=== PATIENT | male | born 1960 | race Caucasian/White ===

== ENCOUNTER 2019-05-03 20:18 | Inpatient (IN) | payer MEDICARE, OTHER ==
--- NOTE | 2019-05-03 20:48 | ED Physician Chart ---
ED Chief Complaint/HPI - Patient Information Date Seen:: 05/03/19 Time Seen:: 20:15 Chief Complaint:: depression History of Present Illness:: Patient initially denied depression. Then he stated he wondered whether it was worth going on since all he does is eat and sleep. Historian:: Patient Review:: Nurse's Note Reviewed ED Review of Systems - Review of Systems General/Constitutional: No fever, No chills Skin: No skin lesions Head: No headache Eyes: No loss of vision ENT: Earache Neck: No neck pain Cardio Vascular: No chest pain, No palpitations Pulmonary: No SOB GI: No nausea, No vomiting, No diarrhea G/U: No dysuria Musculoskeletal: No bone or joint pain, No back pain, No muscle pain Psychiatric: Prior psych history, Depression Hematopoietic: No bruising ED Past Medical History - Past Medical History Past Medical History: HTN, DM, Other (anemia; status post DVT) Family History: Heart disease, Diabetes Melitus, HTN Social History: Non Smoker, No Alcohol Surgical History: other (probable TURP; right BK amputation; amputation left second toe) Psychiatricy History: Depression Medication: Reviewed Family Medical History - Family Member Mother History Unknown: Yes ED Physical Exam - Physical Examination General/Constitutional: Well-developed, well-nourished, Alert, No distress Other Gen/Cons comments:: Alert and oriented to the exact date Head: Atraumatic Eyes: Lids, conjuctiva normal, PERRL Skin: Nl inspection, No rash, No skin lesions, No ecchymosis ENMT: External ears, nose nl, Nasal exam nl Other ENMT comments:: four upper teeth present; all lower teeth absent Neck: No nuchal rigidity Respiratory: Nl effort/Exclusion, Clear to Auscultation Cardio Vascular: RRR, No murmur, gallop, rubs, NL S1 S2 GI: No tenderness/rebounding/guarding, No organomegaly, No hernia, Normal BS's Other Extremities comments:: Right BK amputation and amputation left second toe Neuro/Psych: No focal deficits Misc: No paraspinal tenderness ED Labs/Radiology/EKG Results - EKG Interpretations Rate & Rhythm: normal sinus rhythm with a rate of 70 [place]: normal axis Comments:: Normal EKG ED Septic Shock - . Is Septic Shock (SBP<90, OR Lactate>4 mmol\L) present?: No ED Reassessment (Disposition) - Reassessment Reassessment Condition:: Unchanged - Diagnosis Diagnosis:: Depression - Patient Disposition Admitted to:: [facility] Admitting Medical Physician:: Marco Albarado Admitting Psych Physician:: Ba Yarbrough Condition at Disposition:: Stable, Unchanged
[2019-05-03 21:15] LABS: % EOSINOPHILS 2.4 % (0.0-5.0); % LYMPHOCYTES 19.3 % (20.0-50.0); % MONOCYTES 7.1 % (2.0-10.0); % NEUTROPHILS 71.2 % (40.0-80.0); EOSINOPHILE ABSOLUTE 0.2 Th/cmm (0.1-0.4); HEMATOCRIT 48.1 % (41.0-60); HEMOGLOBIN 15.8 gm/dL (12-16); LYMPHOCYTE ABSOLUTE 1.7 Th/cmm (1.5-3.0); MEAN CELL VOLUME 79.4 fl (80-99); MEAN CORPUSCULAR HEMOGLOBIN 26.1 pg (26.0-30.0); MEAN CORPUSCULAR HGB CONC 32.8 pg (28.0-36.0); MONOCYTE ABSOLUTE 0.6 Th/cmm (0.3-1.0); NEUTROPHILE ABSOLUTE 6.4 Th/cmm (1.8-8.0); PLATELET COUNT 208 Th/cmm (150-400); RED BLOOD COUNT 6.06 Mil/cmm (4.30-5.70); RED CELL DISTRIBUTION WIDTH 16.8 % (11.5-20.0); WHITE BLOOD COUNT 8.9 Th/cmm (4.8-10.8)
[2019-05-03 21:32] LABS: ALB/GLOB RATIO 1.2 (1.0-1.8); ALBUMIN 3.9 gm/dL (4.2-5.5); ALKALINE PHOSPHATASE 64 U/L (34-104); ANION GAP 13.3 (7.0-16.0); BILIRUBIN,TOTAL 0.4 mg/dL (0.3-1.0); BUN - UREA NITROGEN 23 mg/dL (7-25); CALCIUM SERUM 9.1 mg/dL (8.6-10.3); CARBON DIOXIDE 22.4 mEq/L (21.0-31.0); CHLORIDE 104 mEq/L (98-107); CHOLESTEROL 175 mg/dL (<200); CREATININE - SERUM 1.1 mg/dL (0.7-1.3); GFR AFRICAN-AMERICAN > 60.0 ml/min (>90); GFR NON AFRICAN-AMERICAN > 60.0 ml/min; GLUCOSE 254 mg/dL (70-105); HDL -HIGH DENSITY LIPOPROTEIN 31 mg/dL (23-92); POTASSIUM SERUM 3.7 mEq/L (3.5-5.1); SGOT 17 U/L (13-39); SGPT/ALT 15 U/L (7-52); SODIUM SERUM 136 mEq/L (136-145); TOTAL PROTEIN,SERUM 7.3 gm/dL (6.0-8.3); TRIGLYCERIDES 464 mg/dL (<150)
[2019-05-03 23:37] VITALS: BP 111/74
[2019-05-04] MEDS ORDERED: Magnesium Hydroxide (MOM) 30 mL UDC PO PRN (00:22)
[2019-05-04 05:34] LABS: CHOLESTEROL 186 mg/dL (<200); HDL -HIGH DENSITY LIPOPROTEIN 33 mg/dL (23-92); TRIGLYCERIDES 493 mg/dL (<150)
[2019-05-04] MEDS: Ferrous Sulfate 325 MG TAB PO SCH ×2 (08:47→16:35)
[2019-05-04] MEDS: Pantoprazole 40 mg EC Tab PO SCH (08:47)
[2019-05-04] MEDS: Multivitamin w/ Minerals Tab PO SCH (08:48)
[2019-05-04 11:42] LABS: INR 1.26 (0.5-1.4)
--- NOTE | 2019-05-04 13:00 | History & Physical ---
ADMIT DATE: 05/04/2019 CHIEF COMPLAINT: Medical evaluation clearance on inpatient unit. HISTORY OF PRESENT ILLNESS: This is a 59-year-old male with history of hypertension, diabetes, status post ygsot-mlhml-bkkg amputation, history of deep venous thrombosis, on anticoagulation, admitted under service of Dr. Yarbrough. The patient denies chest pain, shortness of breath. PAST MEDICAL HISTORY: As mentioned in history of present illness. PAST SURGICAL HISTORY: Status post right below-knee amputation and a left knee surgery. ALLERGIES: PENICILLIN. MEDICATIONS: Colace, Aricept, Cymbalta, iron, gabapentin, glipizide, [place], lisinopril, milk of magnesia, Glucophage, Lopressor, multivitamin, omeprazole, Flomax, Coumadin. FAMILY HISTORY: Noncontributory. SOCIAL HISTORY: Nonsmoker, nondrinker, no intravenous drug use, . one time with one daughter. REVIEW OF SYSTEMS: GENERAL: The patient denies any constitutional symptoms. HEENT: No blurred vision or pain. LUNGS: No diagnosis of COPD or asthma. HEART: The patient with hypertension and diabetes. ABDOMEN: No nausea, vomiting, or pain. GENITOURINARY: The patient denies increased frequency or dysuria. NEUROLOGIC: No headache, seizure or syncope. PSYCHIATRIC: Stable. PHYSICAL EXAMINATION: VITAL SIGNS: Blood pressure 101/60, respirations 18, pulse 79, temperature 98.4. GENERAL: Elderly male, appears chronically ill. NECK: Supple. No mass. LUNGS: Equal breath sounds, otherwise clear to auscultation. HEART: Regular rate and rhythm without appreciable murmur. ABDOMEN: Soft, globular. EXTREMITIES: Positive right below-knee amputation. NEUROLOGIC: Limited. LABORATORY DATA: WBC 8, hemoglobin 15, platelets 208. INR 1.2. Sodium 133, potassium 3.7, BUN 23, creatinine 1.1, blood sugar 254, albumin 3.9. Triglycerides 183. ASSESSMENT AND PLAN: Hypertension, diabetes, low albumin, elevated triglycerides, benign prostatic hypertrophy, history of deep venous thrombosis, right below-knee amputation. Continue the patient on ADA diet and insulin sliding scale. Continue Coumadin per pharmacy. We will continue on a statin. Continue with current care. Follow consult and recommendations. JOB# [id number]
[2019-05-04] MEDS ORDERED: Non-Formulary Item 1 EA (Glipizide [Glipizide] 10 MG) PO SCH (17:00)
[2019-05-04] MEDS: Fenofibrate, Micronized 134 mg Cap PO SCH (17:10)
[2019-05-04] MEDS: Atorvastatin Calcium 10 MG TAB PO SCH (20:42)
[2019-05-04] MEDS ORDERED: Non-Formulary Item 1 EA (Atorvastatin Calcium [Lipitor] 20 MG) PO SCH (21:00)
--- NOTE | 2019-05-04 23:12 | Psychiatric Evaluation ---
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 States that it is 1998. He knows the month is May 04. The patient alluding to hopeless thoughts, despair, confused, mostly depressed, withdrawn, not really making much sense on exam, concerned about his mood symptoms, sent for worsening depression, isolation. PAST PSYCHIATRIC HISTORY: Denies. SOCIAL HISTORY: The patient states he was born in [place], not . He states he is . States he has a daughter aged 32. MEDICATIONS: Noted. MENTAL STATUS EXAMINATION: Stated age. Fair eye contact. Speech within normal limits. Mood depressed. Affect depressed. Thought processes were confused. No SI, no HI, unclear psychotic symptoms. Poor historian, not answering some questions. Poor insight. PROVISIONAL DIAGNOSES: Dementia, mood, unspecified. MEDICAL: Please see full H and P. ASSESSMENT: The patient is depressed, very confused, concerns about his ability to really function at a lower level. CONDITIONS FOR DISCHARGE: Improved mood, improved affect, better control of his mood symptoms. [facility]# [id number]
[2019-05-05] MEDS: Pantoprazole 40 mg EC Tab PO SCH (06:59)
[2019-05-05 08:06] LABS: A1C 6.7 % (4.8-5.6)
[2019-05-05] MEDS: Ferrous Sulfate 325 MG TAB PO SCH ×2 (09:01→16:47)
[2019-05-05] MEDS: Fenofibrate, Micronized 134 mg Cap PO SCH (09:01)
[2019-05-05] MEDS: Multivitamin w/ Minerals Tab PO SCH (09:02)
[2019-05-05 09:17] LABS: INR 1.16 (0.5-1.4)
--- NOTE | 2019-05-05 11:26 | Internal Medicine Prog Note ---
Internal Medicine Subjective - Subjective Service Date: 05/05/19 Patient seen and examined:: with staff Patient is:: awake, verbal Per staff patient has:: tolerating meds Internal Medicine Objective - Results Result Diagrams: 05/03/19 21:00 05/03/19 21:00 Recent Labs: Laboratory Last Values WBC 8.9 Th/cmm (4.8-10.8) 05/03/19 21:00 RBC 6.06 Mil/cmm (4.30-5.70) H 05/03/19 21:00 Hgb 15.8 gm/dL (12-16) 05/03/19 21:00 Hct 48.1 % (41.0-60) 05/03/19 21:00 MCV 79.4 fl (80-99) L 05/03/19 21:00 MCH 26.1 pg (26.0-30.0) 05/03/19 21:00 MCHC Differential 32.8 pg (28.0-36.0) 05/03/19 21:00 RDW 16.8 % (11.5-20.0) 05/03/19 21:00 Plt Count 208 Th/cmm (150-400) 05/03/19 21:00 MPV 7.4 fl 05/03/19 21:00 Neutrophils % 71.2 % (40.0-80.0) 05/03/19 21:00 Lymphocytes % 19.3 % (20.0-50.0) L 05/03/19 21:00 Monocytes % 7.1 % (2.0-10.0) 05/03/19 21:00 Eosinophils % 2.4 % (0.0-5.0) 05/03/19 21:00 Basophils % 0.0 % (0.0-2.0) 05/03/19 21:00 PT 12.0 SECONDS (9.5-11.5) H 05/05/19 09:00 INR 1.16 (0.5-1.4) 05/05/19 09:00 Sodium 136 mEq/L (136-145) 05/03/19 21:00 Potassium 3.7 mEq/L (3.5-5.1) 05/03/19 21:00 Chloride 104 mEq/L (98-107) 05/03/19 21:00 Carbon Dioxide 22.4 mEq/L (21.0-31.0) 05/03/19 21:00 Anion Gap 13.3 (7.0-16.0) 05/03/19 21:00 BUN 23 mg/dL (7-25) 05/03/19 21:00 Creatinine 1.1 mg/dL (0.7-1.3) 05/03/19 21:00 Est GFR ( Amer) > 60.0 ml/min (>90) 05/03/19 21:00 Est GFR (Non-Af Amer) > 60.0 ml/min 05/03/19 21:00 BUN/Creatinine Ratio 20.9 05/03/19 21:00 Glucose 254 mg/dL (70-105) H 05/03/19 21:00 POC Glucose 146 MG/DL (70 - 105) H 05/05/19 06:08 Calcium 9.1 mg/dL (8.6-10.3) 05/03/19 21:00 Total Bilirubin 0.4 mg/dL (0.3-1.0) 05/03/19 21:00 AST 17 U/L (13-39) 05/03/19 21:00 ALT 15 U/L (7-52) 05/03/19 21:00 Alkaline Phosphatase 64 U/L (34-104) 05/03/19 21:00 Total Protein 7.3 gm/dL (6.0-8.3) 05/03/19 21:00 Albumin 3.9 gm/dL (4.2-5.5) L 05/03/19 21:00 Globulin 3.4 gm/dL 05/03/19 21:00 Albumin/Globulin Ratio 1.2 (1.0-1.8) 05/03/19 21:00 Triglycerides 493 mg/dL (<150) H 05/04/19 21:00 Cholesterol 186 mg/dL (<200) 05/04/19 21:00 LDL Cholesterol Direct 112 mg/dL (75-193) 05/04/19 21:00 HDL Cholesterol 33 mg/dL (23-92) 05/04/19 21:00 TSH 2.63 uIU/ml (0.34-5.60) 05/03/19 21:00 - Physical Exam Vitals and I&O: Vital Signs Temp 97.9 F 05/05/19 04:27 Pulse 83 05/05/19 09:02 Resp 18 05/05/19 04:27 BP 134/97 05/05/19 09:02 Pulse Ox 98 05/05/19 04:27 Intake & Output 05/04/19 05/05/19 05/05/19 18:59 06:59 18:59 Intake Total 1350 480 Balance 1350 480 Intake: Oral 1350 480 Other: # Voids 2 Active Medications: Current Medications Acetaminophen/Hydrocodone Bitart ([place] 5mg/325mg) 1 tab PO BID PRN PRN Reason: Pain (Moderate) Stop: 07/03/19 00:21 Atorvastatin Calcium (Lipitor) 20 mg PO HS [facility]; Protocol Stop: 07/03/19 20:59 Last Admin: 05/04/19 20:42 Dose: 20 mg Docusate Sodium (Colace) 100 mg PO BID [facility] Stop: 07/03/19 08:59 Last Admin: 05/05/19 09:01 Dose: 100 mg Donepezil HCl (Aricept) 10 mg PO HS [facility] Stop: 07/03/19 20:59 Last Admin: 05/04/19 20:43 Dose: 10 mg Duloxetine HCl (Cymbalta) 30 mg PO DAILY [facility]; Protocol Stop: 07/03/19 08:59 Last Admin: 05/05/19 09:01 Dose: 30 mg Fenofibrate (Tricor) 134 mg PO DAILY [facility] Stop: 07/03/19 16:59 Last Admin: 05/05/19 09:01 Dose: 134 mg Ferrous Sulfate (Iron) 325 mg PO BID [facility] Stop: 07/03/19 08:59 Last Admin: 05/05/19 09:01 Dose: 325 mg Gabapentin (Neurontin) 300 mg PO TID [facility] Stop: 07/03/19 08:59 Last Admin: 05/05/19 09:01 Dose: 300 mg Glipizide (Glucotrol) 10 mg PO QDAC [facility] Stop: 07/03/19 08:59 Last Admin: 05/05/19 06:52 Dose: 10 mg Lisinopril (Zestril) 10 mg PO DAILY [facility] Stop: 07/03/19 08:59 Last Admin: 05/05/19 09:01 Dose: 10 mg Lorazepam (Ativan) 0.5 mg PO Q4H PRN; Protocol PRN Reason: Anxiety Stop: 07/03/19 00:29 Magnesium Hydroxide (Milk Of Magnesia) 30 ml PO DAILY PRN PRN Reason: GI DISTRESS Stop: 07/03/19 00:21 Metformin HCl (Glucophage) 1,000 mg PO BID [facility] Stop: 07/03/19 08:59 Last Admin: 05/05/19 09:02 Dose: 1,000 mg Metoprolol Tartrate (Lopressor) 25 mg PO BID [facility] Stop: 07/03/19 08:59 Last Admin: 05/05/19 09:02 Dose: 25 mg Pantoprazole Sodium (Protonix) 40 mg PO QDAC [facility] Stop: 07/03/19 08:59 Last Admin: 05/05/19 06:59 Dose: 40 mg Tamsulosin HCl (Flomax) 0.4 mg PO HS [facility] Stop: 07/03/19 20:59 Last Admin: 05/04/19 20:43 Dose: 0.4 mg Warfarin Sodium (Coumadin Per Pharmacy) 1 ea MC PRN PRN PRN Reason: COUMADIN PER RX Stop: 07/03/19 07:56 Warfarin Sodium (Coumadin) 7.5 mg PO 1300 ONE Stop: 05/05/19 13:01 Zolpidem Tartrate (Ambien) 5 mg PO HS PRN PRN Reason: Insomnia Stop: 07/03/19 00:29 Last Admin: 05/04/19 20:43 Dose: 5 mg General: alert HEENT: NC/AT, PERRLA Neck: Supple Lungs: CTAB Cardiovascular: RRR, Normal S1, Normal S2, without murmur Abdomen: soft, non-tender, non-distended, positive bowel sound Extremities: excoriation Neurological: alert Internal Medicine Assmt/Plan - Assessment Assessment: HTN DM2 LOW ALBUMIN ELEVATED TRIGLYCERIDES BPH HX DVT RBKA - Plan Plan: SLIDING SCALE FALL PRECAUTIONS MONITOR BP CONTINUE CURRENT PLAN OF CARE Nutritional Asmnt/Malnutr-PDOC - Dietary Evaluation Malnutrition Findings (Please click <Entered> for more info): Nutritional Asmnt/Malnutrition Start: 05/04/19 14: 23 Text: Status: Complete Freq: Protocol: Document 05/04/19 14:23 JENIFER (Rec: 05/04/19 14:37 JENIFER [facility]) Nutritional Asmnt/Malnutrition Patient General Information Nutritional Screening Moderate Risk Consult Diagnosis Depression Pertinent Medical Hx/Surgical Hx HTN, DM, Anemia, Status post DVT Subjective Information IA/Consult: New admit Pt is a 53-year-old male admitted on 05/03 c/o depression. Per RN, Pt ate 100 % breakfast and 25-50% lunch today. May want to consider CCHO diet d/t hx of DM and elevated blood glucose 254 noted at admission. RN understood and will talk to MD . HT: 6 WT: 175 LB (79.55 kg) BMI: 23.73 (Normal) GI: WNL, Soft, Non-Tender BM: Not Noted I/O: Not Noted Skin: WNL, Intact Jorge: 16 Diet Order: Cardiac, NCS, ANGIE Estimated Energy Needs: ( Geriatric, CBW) 5991-7126 kcals (25-30 kcals/ kg) 80-95g Pro (1.0-1.2 g/kg) 4655-5933 ml (25-30 ml/kg) Current Diet Order/ Nutrition Support Cardiac, NCS, ANGIE Pertinent Medications Lipitor, Colace, Ferrous Sulfate, MOM (PRN), Glucophage , Lopressor, Protonix Pertinent Labs 05/03: Glucose 254, Alb 3.9 Nutritional Hx/Data Height 6 ft Height (Calculated Centimeters) 182.9 Current Weight (lbs) 175 lb Weight (Calculated Kilograms) 79.4 Weight (Calculated Grams) 96604.7 [place] Body Weight 77.6 kg % [place] Body Weight 103 Body Mass Index (BMI) 23.7 Weight Status Approriate GI Symptoms GI Symptoms None Last BM Not Noted Skin Integrity/Comment: WNL, Intact Jorge: 16 Current %PO Fair (50-74%) Estimated Nutritional Goals BEE in Kcals: Using Current wt Calories/Kcals/Kg 25-30 Kcals Calculated 5970-5370 Protein: Using Current wt Protein g/k.0-1.2 Protein Calculated 80-95 Fluid: ml 8311-9961 ml (25-30 ml/kg) Nutritional Problem 1. Problem Problem Altered nutrition related labs Etiology r/t Endocrine dysfunction and HX DM Signs/Symptoms: aeb 05/03: Glucose 254 Malnutrition Related to Morbid Obesity Malnutrition related to morbid obesity No Intervention/Recommendation Comments 1.Continue with Cardiac, NCS, ANGIE diet as ordered. 2.Recommend CCHO diet d/t hx of DM and elevated blood glucose 254 noted at admission . 3.Continue anti-hyperglycemic medications for glucose control per MD order. Expected Outcomes/Goals Expected Outcomes/Goals 1.PO intake to meet 75% of nutritional needs. 2.Monitor PO intake, wt, skin integrity, and nutrition related labs to trend WNL. 3.F/U as moderate risk in 3-5 days, 05/07-05/09
--- NOTE | 2019-05-05 18:09 | Progress Notes ---
DATE: 05/05/2019 SUBJECTIVE: A 59-year-old male stating he is here for "a [employer] checkup" poor historian, does not really know what is going on, seemingly confused, mostly withdrawn. Per staff, he has history of being sexually inappropriate. Poor orientation. Noted depressed, withdrawn, mostly keeps to self, some forgetfulness noted. Fair sleep, fair appetite, coming [facility]. Medications were reviewed. Ongoing behavioral disturbances, depression noted. PLAN: We will continue to monitor. [facility]# [id number]
[2019-05-05] MEDS: Atorvastatin Calcium 10 MG TAB PO SCH (21:16)
[2019-05-06] MEDS: Pantoprazole 40 mg EC Tab PO SCH (06:57)
[2019-05-06] MEDS: Ferrous Sulfate 325 MG TAB PO SCH ×2 (08:58→17:27)
[2019-05-06] MEDS: Multivitamin w/ Minerals Tab PO SCH (08:58)
[2019-05-06] MEDS: Fenofibrate, Micronized 134 mg Cap PO SCH (08:58)
[2019-05-06 09:12] LABS: INR 1.3 (0.5-1.4)
--- NOTE | 2019-05-06 11:35 | Internal Medicine Prog Note ---
Internal Medicine Subjective - Subjective Service Date: 05/06/19 Patient is:: awake, verbal Per staff patient has:: tolerating meds Internal Medicine Objective - Results Result Diagrams: 05/03/19 21:00 05/03/19 21:00 Recent Labs: Laboratory Last Values WBC 8.9 Th/cmm (4.8-10.8) 05/03/19 21:00 RBC 6.06 Mil/cmm (4.30-5.70) H 05/03/19 21:00 Hgb 15.8 gm/dL (12-16) 05/03/19 21:00 Hct 48.1 % (41.0-60) 05/03/19 21:00 MCV 79.4 fl (80-99) L 05/03/19 21:00 MCH 26.1 pg (26.0-30.0) 05/03/19 21:00 MCHC Differential 32.8 pg (28.0-36.0) 05/03/19 21:00 RDW 16.8 % (11.5-20.0) 05/03/19 21:00 Plt Count 208 Th/cmm (150-400) 05/03/19 21:00 MPV 7.4 fl 05/03/19 21:00 Neutrophils % 71.2 % (40.0-80.0) 05/03/19 21:00 Lymphocytes % 19.3 % (20.0-50.0) L 05/03/19 21:00 Monocytes % 7.1 % (2.0-10.0) 05/03/19 21:00 Eosinophils % 2.4 % (0.0-5.0) 05/03/19 21:00 Basophils % 0.0 % (0.0-2.0) 05/03/19 21:00 PT 13.3 SECONDS (9.5-11.5) H 05/06/19 08:56 INR 1.30 (0.5-1.4) 05/06/19 08:56 Sodium 136 mEq/L (136-145) 05/03/19 21:00 Potassium 3.7 mEq/L (3.5-5.1) 05/03/19 21:00 Chloride 104 mEq/L (98-107) 05/03/19 21:00 Carbon Dioxide 22.4 mEq/L (21.0-31.0) 05/03/19 21:00 Anion Gap 13.3 (7.0-16.0) 05/03/19 21:00 BUN 23 mg/dL (7-25) 05/03/19 21:00 Creatinine 1.1 mg/dL (0.7-1.3) 05/03/19 21:00 Est GFR ( Amer) > 60.0 ml/min (>90) 05/03/19 21:00 Est GFR (Non-Af Amer) > 60.0 ml/min 05/03/19 21:00 BUN/Creatinine Ratio 20.9 05/03/19 21:00 Glucose 254 mg/dL (70-105) H 05/03/19 21:00 POC Glucose 129 MG/DL (70 - 105) H 05/06/19 05:25 Calcium 9.1 mg/dL (8.6-10.3) 05/03/19 21:00 Total Bilirubin 0.4 mg/dL (0.3-1.0) 05/03/19 21:00 AST 17 U/L (13-39) 05/03/19 21:00 ALT 15 U/L (7-52) 05/03/19 21:00 Alkaline Phosphatase 64 U/L (34-104) 05/03/19 21:00 Total Protein 7.3 gm/dL (6.0-8.3) 05/03/19 21:00 Albumin 3.9 gm/dL (4.2-5.5) L 05/03/19 21:00 Globulin 3.4 gm/dL 05/03/19 21:00 Albumin/Globulin Ratio 1.2 (1.0-1.8) 05/03/19 21:00 Triglycerides 493 mg/dL (<150) H 05/04/19 21:00 Cholesterol 186 mg/dL (<200) 05/04/19 21:00 LDL Cholesterol Direct 112 mg/dL (75-193) 05/04/19 21:00 HDL Cholesterol 33 mg/dL (23-92) 05/04/19 21:00 TSH 2.63 uIU/ml (0.34-5.60) 05/03/19 21:00 - Physical Exam Vitals and I&O: Vital Signs Temp 97.9 F 05/06/19 05:35 Pulse 75 05/06/19 05:35 Resp 18 05/06/19 05:35 BP 106/55 05/06/19 05:35 Pulse Ox 96 05/06/19 05:35 Intake & Output 05/05/19 05/06/19 05/06/19 18:59 06:59 18:59 Intake Total 1200 Balance 1200 Intake: Oral 1200 Other: # Voids 4 # Bowel Movements 1 Active Medications: Current Medications Acetaminophen/Hydrocodone Bitart ([place] 5mg/325mg) 1 tab PO BID PRN PRN Reason: Pain (Moderate) Stop: 07/03/19 00:21 Atorvastatin Calcium (Lipitor) 20 mg PO HS [facility]; Protocol Stop: 07/03/19 20:59 Last Admin: 05/05/19 21:16 Dose: 20 mg Docusate Sodium (Colace) 100 mg PO BID [facility] Stop: 07/03/19 08:59 Last Admin: 05/06/19 08:57 Dose: 100 mg Donepezil HCl (Aricept) 10 mg PO HS [facility] Stop: 07/03/19 20:59 Last Admin: 05/05/19 21:16 Dose: 10 mg Duloxetine HCl (Cymbalta) 30 mg PO DAILY [facility]; Protocol Stop: 07/03/19 08:59 Last Admin: 05/06/19 08:57 Dose: 30 mg Fenofibrate (Tricor) 134 mg PO DAILY [facility] Stop: 07/03/19 16:59 Last Admin: 05/06/19 08:58 Dose: 134 mg Ferrous Sulfate (Iron) 325 mg PO BID [facility] Stop: 07/03/19 08:59 Last Admin: 05/06/19 08:58 Dose: 325 mg Gabapentin (Neurontin) 300 mg PO TID [facility] Stop: 07/03/19 08:59 Last Admin: 05/06/19 08:58 Dose: 300 mg Glipizide (Glucotrol) 10 mg PO QDAC [facility] Stop: 07/03/19 08:59 Last Admin: 05/06/19 06:57 Dose: 10 mg Lisinopril (Zestril) 10 mg PO DAILY [facility] Stop: 07/03/19 08:59 Last Admin: 05/06/19 08:58 Dose: Not Given Lorazepam (Ativan) 0.5 mg PO Q4H PRN; Protocol PRN Reason: Anxiety Stop: 07/03/19 00:29 Magnesium Hydroxide (Milk Of Magnesia) 30 ml PO DAILY PRN PRN Reason: GI DISTRESS Stop: 07/03/19 00:21 Metformin HCl (Glucophage) 1,000 mg PO BID [facility] Stop: 07/03/19 08:59 Last Admin: 05/06/19 08:58 Dose: 1,000 mg Metoprolol Tartrate (Lopressor) 25 mg PO BID [facility] Stop: 07/03/19 08:59 Last Admin: 05/06/19 08:58 Dose: Not Given Pantoprazole Sodium (Protonix) 40 mg PO QDAC [facility] Stop: 07/03/19 08:59 Last Admin: 05/06/19 06:57 Dose: 40 mg Tamsulosin HCl (Flomax) 0.4 mg PO HS [facility] Stop: 07/03/19 20:59 Last Admin: 05/05/19 21:16 Dose: 0.4 mg Warfarin Sodium (Coumadin Per Pharmacy) 1 ea MC PRN PRN PRN Reason: COUMADIN PER RX Stop: 07/03/19 07:56 Warfarin Sodium (Coumadin) 5 mg PO 1300 ONE Stop: 05/06/19 13:01 Zolpidem Tartrate (Ambien) 5 mg PO HS PRN PRN Reason: Insomnia Stop: 07/03/19 00:29 Last Admin: 05/04/19 20:43 Dose: 5 mg General: alert HEENT: NC/AT, PERRLA Neck: Supple Lungs: CTAB Cardiovascular: RRR, Normal S1, Normal S2, without murmur Abdomen: soft, non-tender, non-distended, positive bowel sound Extremities: excoriation Neurological: alert Internal Medicine Assmt/Plan - Assessment Assessment: HTN DM2 LOW ALBUMIN ELEVATED TRIGLYCERIDES BPH HX DVT RBKA - Plan Plan: SLIDING SCALE FALL PRECAUTIONS MONITOR BP CONTINUE CURRENT PLAN OF CARE Nutritional Asmnt/Malnutr-PDOC - Dietary Evaluation Malnutrition Findings (Please click <Entered> for more info): Nutritional Asmnt/Malnutrition Start: 05/04/19 14: 23 Text: Status: Complete Freq: Protocol: Document 05/04/19 14:23 JENIFER (Rec: 05/04/19 14:37 JENIFER [facility]) Nutritional Asmnt/Malnutrition Patient General Information Nutritional Screening Moderate Risk Consult Diagnosis Depression Pertinent Medical Hx/Surgical Hx HTN, DM, Anemia, Status post DVT Subjective Information IA/Consult: New admit Pt is a 53-year-old male admitted on 05/03 c/o depression. Per RN, Pt ate 100 % breakfast and 25-50% lunch today. May want to consider CCHO diet d/t hx of DM and elevated blood glucose 254 noted at admission. RN understood and will talk to MD . HT: 6 WT: 175 LB (79.55 kg) BMI: 23.73 (Normal) GI: WNL, Soft, Non-Tender BM: Not Noted I/O: Not Noted Skin: WNL, Intact Jorge: 16 Diet Order: Cardiac, NCS, ANGIE Estimated Energy Needs: ( Geriatric, CBW) 2716-1370 kcals (25-30 kcals/ kg) 80-95g Pro (1.0-1.2 g/kg) 8522-3159 ml (25-30 ml/kg) Current Diet Order/ Nutrition Support Cardiac, NCS, AGNIE Pertinent Medications Lipitor, Colace, Ferrous Sulfate, MOM (PRN), Glucophage , Lopressor, Protonix Pertinent Labs 05/03: Glucose 254, Alb 3.9 Nutritional Hx/Data Height 6 ft Height (Calculated Centimeters) 182.9 Current Weight (lbs) 175 lb Weight (Calculated Kilograms) 79.4 Weight (Calculated Grams) 45377.7 [place] Body Weight 77.6 kg % [place] Body Weight 103 Body Mass Index (BMI) 23.7 Weight Status Approriate GI Symptoms GI Symptoms None Last BM Not Noted Skin Integrity/Comment: WNL, Intact Jorge: 16 Current %PO Fair (50-74%) Estimated Nutritional Goals BEE in Kcals: Using Current wt Calories/Kcals/Kg 25-30 Kcals Calculated 6094-6953 Protein: Using Current wt Protein g/k.0-1.2 Protein Calculated 80-95 Fluid: ml 1590-8816 ml (25-30 ml/kg) Nutritional Problem 1. Problem Problem Altered nutrition related labs Etiology r/t Endocrine dysfunction and HX DM Signs/Symptoms: aeb 05/03: Glucose 254 Malnutrition Related to Morbid Obesity Malnutrition related to morbid obesity No Intervention/Recommendation Comments 1.Continue with Cardiac, NCS, ANGIE diet as ordered. 2.Recommend CCHO diet d/t hx of DM and elevated blood glucose 254 noted at admission . 3.Continue anti-hyperglycemic medications for glucose control per MD order. Expected Outcomes/Goals Expected Outcomes/Goals 1.PO intake to meet 75% of nutritional needs. 2.Monitor PO intake, wt, skin integrity, and nutrition related labs to trend WNL. 3.F/U as moderate risk in 3-5 days, 05/07-05/09
[2019-05-06] MEDS: Hydrocodone/APAP 5mg/325mg Tab PO PRN (20:46)
[2019-05-06] MEDS: Atorvastatin Calcium 10 MG TAB PO SCH (20:47)
--- NOTE | 2019-05-07 00:23 | Progress Notes ---
DATE: 05/06/2019 SUBJECTIVE: The patient is currently in the hospital, slept about 6-7 hours, staff monitoring for depression and sexually inappropriate behaviors. The patient has been generally calm, mostly keeps to self, confused, does not know why he is here. He gave some answers as to why he is here, but they are all wrong, not wanting to talk to me today. He is sleeping, arousable, but does not want to talk to me and tells me to go away. Medications were noted. Staff keeping a close eye on any behavioral disturbances. PLAN: We will continue to monitor. Medications were also reviewed. JOB# [id number]
[2019-05-07] MEDS: Pantoprazole 40 mg EC Tab PO SCH (07:02)
[2019-05-07] MEDS: Fenofibrate, Micronized 134 mg Cap PO SCH (09:14)
[2019-05-07] MEDS: Ferrous Sulfate 325 MG TAB PO SCH ×3 (09:14→18:27)
[2019-05-07] MEDS: Multivitamin w/ Minerals Tab PO SCH (09:14)
[2019-05-07 11:20] LABS: INR 1.4 (0.5-1.4)
--- NOTE | 2019-05-07 15:21 | Internal Medicine Prog Note ---
Internal Medicine Subjective - Subjective Patient seen and examined:: with staff, chart reviewed Patient is:: awake, verbal, interactive Per staff patient has:: no adverse event, no episodes of fall, poor oral intake , tolerating meds Internal Medicine Objective - Results Result Diagrams: 05/03/19 21:00 05/03/19 21:00 Recent Labs: Laboratory Last Values WBC 8.9 Th/cmm (4.8-10.8) 05/03/19 21:00 RBC 6.06 Mil/cmm (4.30-5.70) H 05/03/19 21:00 Hgb 15.8 gm/dL (12-16) 05/03/19 21:00 Hct 48.1 % (41.0-60) 05/03/19 21:00 MCV 79.4 fl (80-99) L 05/03/19 21:00 MCH 26.1 pg (26.0-30.0) 05/03/19 21:00 MCHC Differential 32.8 pg (28.0-36.0) 05/03/19 21:00 RDW 16.8 % (11.5-20.0) 05/03/19 21:00 Plt Count 208 Th/cmm (150-400) 05/03/19 21:00 MPV 7.4 fl 05/03/19 21:00 Neutrophils % 71.2 % (40.0-80.0) 05/03/19 21:00 Lymphocytes % 19.3 % (20.0-50.0) L 05/03/19 21:00 Monocytes % 7.1 % (2.0-10.0) 05/03/19 21:00 Eosinophils % 2.4 % (0.0-5.0) 05/03/19 21:00 Basophils % 0.0 % (0.0-2.0) 05/03/19 21:00 PT 14.4 SECONDS (9.5-11.5) H 05/07/19 11:00 INR 1.40 (0.5-1.4) 05/07/19 11:00 Sodium 136 mEq/L (136-145) 05/03/19 21:00 Potassium 3.7 mEq/L (3.5-5.1) 05/03/19 21:00 Chloride 104 mEq/L (98-107) 08/29/19 21:00 Carbon Dioxide 22.4 mEq/L (21.0-31.0) 05/03/19 21:00 Anion Gap 13.3 (7.0-16.0) 05/03/19 21:00 BUN 23 mg/dL (7-25) 05/03/19 21:00 Creatinine 1.1 mg/dL (0.7-1.3) 05/03/19 21:00 Est GFR ( Amer) > 60.0 ml/min (>90) 05/03/19 21:00 Est GFR (Non-Af Amer) > 60.0 ml/min 05/03/19 21:00 BUN/Creatinine Ratio 20.9 05/03/19 21:00 Glucose 254 mg/dL (70-105) H 05/03/19 21:00 POC Glucose 153 MG/DL (70 - 105) H 05/07/19 14:18 Calcium 9.1 mg/dL (8.6-10.3) 05/03/19 21:00 Total Bilirubin 0.4 mg/dL (0.3-1.0) 05/03/19 21:00 AST 17 U/L (13-39) 05/03/19 21:00 ALT 15 U/L (7-52) 05/03/19 21:00 Alkaline Phosphatase 64 U/L (34-104) 05/03/19 21:00 Total Protein 7.3 gm/dL (6.0-8.3) 05/03/19 21:00 Albumin 3.9 gm/dL (4.2-5.5) L 05/03/19 21:00 Globulin 3.4 gm/dL 05/03/19 21:00 Albumin/Globulin Ratio 1.2 (1.0-1.8) 05/03/19 21:00 Triglycerides 493 mg/dL (<150) H 05/04/19 21:00 Cholesterol 186 mg/dL (<200) 05/04/19 21:00 LDL Cholesterol Direct 112 mg/dL (75-193) 05/04/19 21:00 HDL Cholesterol 33 mg/dL (23-92) 05/04/19 21:00 TSH 2.63 uIU/ml (0.34-5.60) 05/03/19 21:00 RPR NONREACTIVE (NONREACTIVE) 05/03/19 21:00 - Physical Exam Vitals and I&O: Vital Signs Temp 98.1 F 05/07/19 14:27 Pulse 74 05/07/19 14:27 Resp 18 05/07/19 14:27 BP 104/68 05/07/19 14:27 Pulse Ox 94 05/07/19 14:27 Active Medications: Current Medications Acetaminophen/Hydrocodone Bitart ([place] 5mg/325mg) 1 tab PO BID PRN PRN Reason: Pain (Moderate) Stop: 07/03/19 00:21 Last Admin: 05/06/19 20:46 Dose: 1 tab Atorvastatin Calcium (Lipitor) 20 mg PO HS [facility]; Protocol Stop: 07/03/19 20:59 Last Admin: 05/06/19 20:47 Dose: 20 mg Docusate Sodium (Colace) 100 mg PO BID [facility] Stop: 07/03/19 08:59 Last Admin: 05/07/19 14:06 Dose: Not Given Donepezil HCl (Aricept) 10 mg PO HS [facility] Stop: 07/03/19 20:59 Last Admin: 05/06/19 20:46 Dose: 10 mg Duloxetine HCl (Cymbalta) 30 mg PO DAILY [facility]; Protocol Stop: 07/03/19 08:59 Last Admin: 05/07/19 09:14 Dose: 30 mg Fenofibrate (Tricor) 134 mg PO DAILY [facility] Stop: 07/03/19 16:59 Last Admin: 05/07/19 09:14 Dose: 134 mg Ferrous Sulfate (Iron) 325 mg PO BID [facility] Stop: 07/03/19 08:59 Last Admin: 05/07/19 14:06 Dose: Not Given Gabapentin (Neurontin) 300 mg PO TID [facility] Stop: 07/03/19 08:59 Last Admin: 05/07/19 14:06 Dose: Not Given Glipizide (Glucotrol) 10 mg PO QDAC [facility] Stop: 07/03/19 08:59 Last Admin: 05/07/19 07:02 Dose: 10 mg Lisinopril (Zestril) 10 mg PO DAILY [facility] Stop: 07/03/19 08:59 Last Admin: 05/07/19 09:14 Dose: Not Given Lorazepam (Ativan) 0.5 mg PO Q4H PRN; Protocol PRN Reason: Anxiety Stop: 07/03/19 00:29 Magnesium Hydroxide (Milk Of Magnesia) 30 ml PO DAILY PRN PRN Reason: GI DISTRESS Stop: 07/03/19 00:21 Metformin HCl (Glucophage) 1,000 mg PO BID [facility] Stop: 07/03/19 08:59 Last Admin: 05/07/19 14:06 Dose: Not Given Metoprolol Tartrate (Lopressor) 25 mg PO BID [facility] Stop: 07/03/19 08:59 Last Admin: 05/07/19 09:14 Dose: Not Given Pantoprazole Sodium (Protonix) 40 mg PO QDAC [facility] Stop: 07/03/19 08:59 Last Admin: 05/07/19 07:02 Dose: 40 mg Tamsulosin HCl (Flomax) 0.4 mg PO HS [facility] Stop: 07/03/19 20:59 Last Admin: 05/06/19 20:47 Dose: 0.4 mg Warfarin Sodium (Coumadin Per Pharmacy) 1 ea [facility] PRN PRN PRN Reason: COUMADIN PER RX Stop: 07/03/19 07:56 Zolpidem Tartrate (Ambien) 5 mg PO HS PRN PRN Reason: Insomnia Stop: 07/03/19 00:29 Last Admin: 05/06/19 21:27 Dose: 5 mg General: alert HEENT: NC/AT, PERRLA Neck: Supple Lungs: CTAB Cardiovascular: RRR, Normal S1, Normal S2, without murmur Abdomen: soft, non-tender, non-distended, positive bowel sound Extremities: excoriation Neurological: alert Internal Medicine Assmt/Plan - Assessment Assessment: - Assessment Assessment: HTN DM2 LOW ALBUMIN ELEVATED TRIGLYCERIDES BPH HX DVT RBKA - Plan Plan: - Plan Plan: SLIDING SCALE FALL PRECAUTIONS MONITOR BP CONTINUE CURRENT PLAN OF CARE nutritional support will titrate meds any rn Nutritional Asmnt/Malnutr-PDOC - Dietary Evaluation Malnutrition Findings (Please click <Entered> for more info): Nutritional Asmnt/Malnutrition Start: 05/04/19 14: 23 Text: Status: Complete Freq: Protocol: Document 05/04/19 14:23 JENIFER (Rec: 05/04/19 14:37 JENIFER [email or web address]) Nutritional Asmnt/Malnutrition Patient General Information Nutritional Screening Moderate Risk Consult Diagnosis Depression Pertinent Medical Hx/Surgical Hx HTN, DM, Anemia, Status post DVT Subjective Information IA/Consult: New admit Pt is a 53-year-old male admitted on 05/03 c/o depression. Per RN, Pt ate 100 % breakfast and 25-50% lunch today. May want to consider CCHO diet d/t hx of DM and elevated blood glucose 254 noted at admission. RN understood and will talk to MD . HT: 6 WT: 175 LB (79.55 kg) BMI: 23.73 (Normal) GI: WNL, Soft, Non-Tender BM: Not Noted I/O: Not Noted Skin: WNL, Intact Jorge: 16 Diet Order: Cardiac, NCS, ANGIE Estimated Energy Needs: ( Geriatric, CBW) 9102-8657 kcals (25-30 kcals/ kg) 80-95g Pro (1.0-1.2 g/kg) 6876-7707 ml (25-30 ml/kg) Current Diet Order/ Nutrition Support Cardiac, NCS, ANGIE Pertinent Medications Lipitor, Colace, Ferrous Sulfate, MOM (PRN), Glucophage , Lopressor, Protonix Pertinent Labs 05/03: Glucose 254, Alb 3.9 Nutritional Hx/Data Height 1.83 m Height (Calculated Centimeters) 182.9 Current Weight (lbs) 79.379 kg Weight (Calculated Kilograms) 79.4 Weight (Calculated Grams) 92694.7 [place] Body Weight 77.6 kg % [place] Body Weight 103 Body Mass Index (BMI) 23.7 Weight Status Approriate GI Symptoms GI Symptoms None Last BM Not Noted Skin Integrity/Comment: WNL, Intact Jorge: 16 Current %PO Fair (50-74%) Estimated Nutritional Goals BEE in Kcals: Using Current wt Calories/Kcals/Kg 25-30 Kcals Calculated 8302-4930 Protein: Using Current wt Protein g/k.0-1.2 Protein Calculated 80-95 Fluid: ml 5424-3083 ml (25-30 ml/kg) Nutritional Problem 1. Problem Problem Altered nutrition related labs Etiology r/t Endocrine dysfunction and HX DM Signs/Symptoms: aeb 05/03: Glucose 254 Malnutrition Related to Morbid Obesity Malnutrition related to morbid obesity No Intervention/Recommendation Comments 1.Continue with Cardiac, NCS, ANGIE diet as ordered. 2.Recommend CCHO diet d/t hx of DM and elevated blood glucose 254 noted at admission . 3.Continue anti-hyperglycemic medications for glucose control per MD order. Expected Outcomes/Goals Expected Outcomes/Goals 1.PO intake to meet 75% of nutritional needs. 2.Monitor PO intake, wt, skin integrity, and nutrition related labs to trend WNL. 3.F/U as moderate risk in 3-5 days, 05/07-05/09
--- NOTE | 2019-05-07 16:13 | Progress Notes ---
DATE: 05/07/2019 SUBJECTIVE: The patient seems to be showing some signs of improvement, still sometimes withdrawn, depressed appearing. Concerns for sexual inappropriate behaviors, but the patient seems to be doing somewhat better. The patient has no agitation, no escalation of behaviors and outbursts, but somewhat withdrawn, poor motivation opposed to any ADLs, just mostly keeps to self, not really interactive. ASSESSMENT: The patient is somewhat forgetful, depressed appearing, attest to depression. PLAN: We will continue to monitor. Continue medications at current doses. Consider dose increase of anti-depressant. JOB# [id number]
[2019-05-07] MEDS: Atorvastatin Calcium 10 MG TAB PO SCH (20:30)
[2019-05-07] MEDS: Hydrocodone/APAP 5mg/325mg Tab PO PRN (20:30)
[2019-05-08] MEDS: Pantoprazole 40 mg EC Tab PO SCH (06:53)
[2019-05-08 08:05] LABS: % EOSINOPHILS 3.9 % (0.0-5.0); % LYMPHOCYTES 25.7 % (20.0-50.0); % MONOCYTES 7.7 % (2.0-10.0); % NEUTROPHILS 62.7 % (40.0-80.0); EOSINOPHILE ABSOLUTE 0.3 Th/cmm (0.1-0.4); HEMOGLOBIN 17.1 gm/dL (12-16); LYMPHOCYTE ABSOLUTE 2.2 Th/cmm (1.5-3.0); MEAN CORPUSCULAR HEMOGLOBIN 26.1 pg (26.0-30.0); MEAN CORPUSCULAR HGB CONC 33.5 pg (28.0-36.0); MONOCYTE ABSOLUTE 0.7 Th/cmm (0.3-1.0); NEUTROPHILE ABSOLUTE 5.4 Th/cmm (1.8-8.0); PLATELET COUNT 198 Th/cmm (150-400); RED BLOOD COUNT 6.53 Mil/cmm (4.30-5.70); RED CELL DISTRIBUTION WIDTH 16.3 % (11.5-20.0); WHITE BLOOD COUNT 8.6 Th/cmm (4.8-10.8)
[2019-05-08 08:11] LABS: INR 1.4 (0.5-1.4)
[2019-05-08] MEDS: Fenofibrate, Micronized 134 mg Cap PO SCH (08:32)
[2019-05-08] MEDS: Multivitamin w/ Minerals Tab PO SCH (08:33)
[2019-05-08] MEDS: Ferrous Sulfate 325 MG TAB PO SCH ×2 (08:33→16:31)
--- NOTE | 2019-05-08 09:17 | Diagnostic Imaging Report ---
Head CT without intravenous contrast Indication: Dizziness Comparison: None Technique: Axial images were obtained from the vertex to the skull base without IV contrast. Coronal reconstructions were made. Total DLP: 717, [id number] FINDINGS: Images of the brain obtained without contrast demonstrate no acute hemorrhage. No mass lesions identified. The ventricles and basal cisterns are patent. The rodrigues-white matter differentiation is preserved. There is no mass effect or midline shift. No skull fractures identified. No soft tissue swelling. The paranasal sinuses are clear. IMPRESSION: No acute intracranial abnormality.
--- NOTE | 2019-05-08 12:30 | Internal Medicine Prog Note ---
Internal Medicine Subjective - Subjective Patient seen and examined:: with staff, chart reviewed Patient is:: awake, verbal, interactive Per staff patient has:: no adverse event, no episodes of fall, poor oral intake , tolerating meds Internal Medicine Objective - Results Result Diagrams: 05/08/19 07:30 05/03/19 21:00 Recent Labs: Laboratory Last Values WBC 8.6 Th/cmm (4.8-10.8) 05/08/19 07:30 RBC 6.53 Mil/cmm (4.30-5.70) H 05/08/19 07:30 Hgb 17.1 gm/dL (12-16) 05/08/19 07:30 Hct 51.0 % (41.0-60) 05/08/19 07:30 MCV 78.0 fl (80-99) L 05/08/19 07:30 MCH 26.1 pg (26.0-30.0) 05/08/19 07:30 MCHC Differential 33.5 pg (28.0-36.0) 05/08/19 07:30 RDW 16.3 % (11.5-20.0) 05/08/19 07:30 Plt Count 198 Th/cmm (150-400) 05/08/19 07:30 MPV 7.8 fl 05/08/19 07:30 Neutrophils % 62.7 % (40.0-80.0) 05/08/19 07:30 Lymphocytes % 25.7 % (20.0-50.0) 05/08/19 07:30 Monocytes % 7.7 % (2.0-10.0) 05/08/19 07:30 Eosinophils % 3.9 % (0.0-5.0) 05/08/19 07:30 Basophils % 0.0 % (0.0-2.0) 05/08/19 07:30 PT 14.3 SECONDS (9.5-11.5) H 05/08/19 07:30 INR 1.40 (0.5-1.4) 05/08/19 07:30 Sodium 136 mEq/L (136-145) 05/03/19 21:00 Potassium 3.7 mEq/L (3.5-5.1) 05/03/19 21:00 Chloride 104 mEq/L (98-107) 05/03/19 21:00 Carbon Dioxide 22.4 mEq/L (21.0-31.0) 05/03/19 21:00 Anion Gap 13.3 (7.0-16.0) 05/03/19 21:00 BUN 23 mg/dL (7-25) 05/03/19 21:00 Creatinine 1.1 mg/dL (0.7-1.3) 05/03/19 21:00 Est GFR ( Amer) > 60.0 ml/min (>90) 05/03/19 21:00 Est GFR (Non-Af Amer) > 60.0 ml/min 05/03/19 21:00 BUN/Creatinine Ratio 20.9 05/03/19 21:00 Glucose 254 mg/dL (70-105) H 05/03/19 21:00 POC Glucose 153 MG/DL (70 - 105) H 05/07/19 14:18 Calcium 9.1 mg/dL (8.6-10.3) 05/03/19 21:00 Total Bilirubin 0.4 mg/dL (0.3-1.0) 05/03/19 21:00 AST 17 U/L (13-39) 05/03/19 21:00 ALT 15 U/L (7-52) 05/03/19 21:00 Alkaline Phosphatase 64 U/L (34-104) 05/03/19 21:00 Total Protein 7.3 gm/dL (6.0-8.3) 05/03/19 21:00 Albumin 3.9 gm/dL (4.2-5.5) L 05/03/19 21:00 Globulin 3.4 gm/dL 05/03/19 21:00 Albumin/Globulin Ratio 1.2 (1.0-1.8) 05/03/19 21:00 Triglycerides 493 mg/dL (<150) H 05/04/19 21:00 Cholesterol 186 mg/dL (<200) 05/04/19 21:00 LDL Cholesterol Direct 112 mg/dL (75-193) 05/04/19 21:00 HDL Cholesterol 33 mg/dL (23-92) 05/04/19 21:00 TSH 2.63 uIU/ml (0.34-5.60) 05/03/19 21:00 RPR NONREACTIVE (NONREACTIVE) 08/29/19 21:00 - Physical Exam Vitals and I&O: Vital Signs Temp 98.3 F 05/08/19 04:48 Pulse 70 05/08/19 04:48 Resp 20 05/08/19 04:48 BP 127/90 05/08/19 04:48 Pulse Ox 94 05/08/19 04:48 Intake & Output 05/07/19 05/08/19 05/08/19 18:59 06:59 18:59 Intake Total 480 Balance 480 Intake: Oral 480 Other: # Voids 2 Active Medications: Current Medications Acetaminophen/Hydrocodone Bitart ([place] 5mg/325mg) 1 tab PO BID PRN PRN Reason: Pain (Moderate) Stop: 07/03/19 00:21 Last Admin: 05/07/19 20:30 Dose: 1 tab Atorvastatin Calcium (Lipitor) 20 mg PO HS [facility]; Protocol Stop: 07/03/19 20:59 Last Admin: 05/07/19 20:30 Dose: 20 mg Docusate Sodium (Colace) 100 mg PO BID [facility] Stop: 07/03/19 08:59 Last Admin: 05/08/19 08:32 Dose: 100 mg Donepezil HCl (Aricept) 10 mg PO HS [facility] Stop: 07/03/19 20:59 Last Admin: 05/07/19 20:31 Dose: 10 mg Duloxetine HCl (Cymbalta) 30 mg PO DAILY [facility]; Protocol Stop: 07/03/19 08:59 Last Admin: 05/08/19 08:32 Dose: 30 mg Fenofibrate (Tricor) 134 mg PO DAILY [facility] Stop: 07/03/19 16:59 Last Admin: 05/08/19 08:32 Dose: 134 mg Ferrous Sulfate (Iron) 325 mg PO BID [facility] Stop: 07/03/19 08:59 Last Admin: 05/08/19 08:33 Dose: 325 mg Gabapentin (Neurontin) 300 mg PO TID [facility] Stop: 07/03/19 08:59 Last Admin: 05/08/19 08:33 Dose: 300 mg Glipizide (Glucotrol) 10 mg PO QDAC [facility] Stop: 07/03/19 08:59 Last Admin: 05/08/19 06:52 Dose: 10 mg Lisinopril (Zestril) 10 mg PO DAILY [facility] Stop: 07/03/19 08:59 Last Admin: 05/08/19 08:33 Dose: Not Given Lorazepam (Ativan) 0.5 mg PO Q4H PRN; Protocol PRN Reason: Anxiety Stop: 07/03/19 00:29 Magnesium Hydroxide (Milk Of Magnesia) 30 ml PO DAILY PRN PRN Reason: GI DISTRESS Stop: 07/03/19 00:21 Metformin HCl (Glucophage) 1,000 mg PO BID [facility] Stop: 07/03/19 08:59 Last Admin: 05/08/19 08:33 Dose: 1,000 mg Metoprolol Tartrate (Lopressor) 25 mg PO BID [facility] Stop: 07/03/19 08:59 Last Admin: 05/08/19 08:33 Dose: Not Given Pantoprazole Sodium (Protonix) 40 mg PO QDAC [facility] Stop: 07/03/19 08:59 Last Admin: 05/08/19 06:53 Dose: 40 mg Tamsulosin HCl (Flomax) 0.4 mg PO HS [facility] Stop: 07/03/19 20:59 Last Admin: 05/07/19 20:31 Dose: 0.4 mg Warfarin Sodium (Coumadin Per Pharmacy) 1 ea [facility] PRN PRN PRN Reason: COUMADIN PER RX Stop: 07/03/19 07:56 Warfarin Sodium 5 mg/ Warfarin (Sodium 2.5 mg) 7.5 mg PO ONCE ONE Stop: 05/08/19 13:01 Zolpidem Tartrate (Ambien) 5 mg PO HS PRN PRN Reason: Insomnia Stop: 07/03/19 00:29 Last Admin: 05/07/19 21:37 Dose: 5 mg General: alert HEENT: NC/AT, PERRLA Neck: Supple Lungs: CTAB Cardiovascular: RRR, Normal S1, Normal S2, without murmur Abdomen: soft, non-tender, non-distended, positive bowel sound Extremities: excoriation Neurological: alert Internal Medicine Assmt/Plan - Assessment Assessment: - Assessment Assessment: HTN DM2 LOW ALBUMIN ELEVATED TRIGLYCERIDES BPH HX DVT RBKA - Plan Plan: - Plan Plan: SLIDING SCALE FALL PRECAUTIONS MONITOR BP CONTINUE CURRENT PLAN OF CARE nutritional support will titrate meds any rn Nutritional Asmnt/Malnutr-PDOC - Dietary Evaluation Malnutrition Findings (Please click <Entered> for more info): Nutritional Asmnt/Malnutrition Start: 05/04/19 14: 23 Text: Status: Complete Freq: Protocol: Document 05/04/19 14:23 JENIFER (Rec: 05/04/19 14:37 [email or web address]) Nutritional Asmnt/Malnutrition Patient General Information Nutritional Screening Moderate Risk Consult Diagnosis Depression Pertinent Medical Hx/Surgical Hx HTN, DM, Anemia, Status post DVT Subjective Information IA/Consult: New admit Pt is a 53-year-old male admitted on 05/03 c/o depression. Per RN, Pt ate 100 % breakfast and 25-50% lunch today. May want to consider CCHO diet d/t hx of DM and elevated blood glucose 254 noted at admission. RN understood and will talk to MD . HT: 6 WT: 175 LB (79.55 kg) BMI: 23.73 (Normal) GI: WNL, Soft, Non-Tender BM: Not Noted I/O: Not Noted Skin: WNL, Intact Jorge: 16 Diet Order: Cardiac, NCS, ANGIE Estimated Energy Needs: ( Geriatric, CBW) 2365-5679 kcals (25-30 kcals/ kg) 80-95g Pro (1.0-1.2 g/kg) 9434-8816 ml (25-30 ml/kg) Current Diet Order/ Nutrition Support Cardiac, NCS, ANGIE Pertinent Medications Lipitor, Colace, Ferrous Sulfate, MOM (PRN), Glucophage , Lopressor, Protonix Pertinent Labs 05/03: Glucose 254, Alb 3.9 Nutritional Hx/Data Height 1.83 m Height (Calculated Centimeters) 182.9 Current Weight (lbs) 79.379 kg Weight (Calculated Kilograms) 79.4 Weight (Calculated Grams) 77858.7 [place] Body Weight 77.6 kg % [place] Body Weight 103 Body Mass Index (BMI) 23.7 Weight Status Approriate GI Symptoms GI Symptoms None Last BM Not Noted Skin Integrity/Comment: WNL, Intact Jorge: 16 Current %PO Fair (50-74%) Estimated Nutritional Goals BEE in Kcals: Using Current wt Calories/Kcals/Kg 25-30 Kcals Calculated 6822-4166 Protein: Using Current wt Protein g/k.0-1.2 Protein Calculated 80-95 Fluid: ml 9683-2096 ml (25-30 ml/kg) Nutritional Problem 1. Problem Problem Altered nutrition related labs Etiology r/t Endocrine dysfunction and HX DM Signs/Symptoms: aeb 05/03: Glucose 254 Malnutrition Related to Morbid Obesity Malnutrition related to morbid obesity No Intervention/Recommendation Comments 1.Continue with Cardiac, NCS, ANGIE diet as ordered. 2.Recommend CCHO diet d/t hx of DM and elevated blood glucose 254 noted at admission . 3.Continue anti-hyperglycemic medications for glucose control per MD order. Expected Outcomes/Goals Expected Outcomes/Goals 1.PO intake to meet 75% of nutritional needs. 2.Monitor PO intake, wt, skin integrity, and nutrition related labs to trend WNL. 3.F/U as moderate risk in 3-5 days, 05/07-05/09
[2019-05-08] MEDS: Atorvastatin Calcium 10 MG TAB PO SCH (20:22)
--- NOTE | 2019-05-08 23:08 | Progress Notes ---
DATE: 05/08/2019 Case was discussed with staff of the patient, reviewed records. Covering for Dr. Yarbrough. A 59-year-old male who was on 05/04/2019 complained that he wants to have [employer]NA[employer] checkup. He was a poor historian, disoriented, states this is 1998, he knows the month, 05/04/2019. He feels hopeless, despaired, confused, mostly depressed, withdrawn and not making much sense, concerned about his mood symptoms. He is . He has a daughter, 32 years of age. Continues to be depressed, confused, very poor historian, unable to answer some questions. Continues to be unable to make safe plan for self-care. Decreasing agitation according to the staff, but somewhat withdrawn, poor motivation, opposing ADLs, keeps to himself, forgetful. He was seen by Dr. Albarado yesterday who ordered a head CT scan for the patient. He is on fall precautions. The head CT scan showed no acute hemorrhage, no mass or lesions identified. Ventricles and basal cisterns are patent. The rodrigues white matter differentiation is preserved. There is no mass effect or midline shift and that was done because of complaints of dizziness. No skull fracture identified. The frontal sinuses are clear. has been on Aricept 10 mg at bedtime, Cymbalta 30 mg daily and no side effects from the medication, no sedation, no nausea. We will continue outpatient group therapy, milieu therapy, adjust medication as needed. JOB# [id number] MAKI
[2019-05-09] MEDS: Pantoprazole 40 mg EC Tab PO SCH (07:04)
[2019-05-09 08:35] LABS: INR 1.31 (0.5-1.4)
[2019-05-09] MEDS: Ferrous Sulfate 325 MG TAB PO SCH ×2 (08:50→16:29)
[2019-05-09] MEDS: Fenofibrate, Micronized 134 mg Cap PO SCH (08:50)
[2019-05-09] MEDS: Multivitamin w/ Minerals Tab PO SCH (08:51)
--- NOTE | 2019-05-09 12:50 | Internal Medicine Prog Note ---
Internal Medicine Subjective - Subjective Patient seen and examined:: with staff, chart reviewed Patient is:: awake, verbal, interactive Per staff patient has:: no adverse event, no episodes of fall, poor oral intake , tolerating meds Internal Medicine Objective - Results Result Diagrams: 05/08/19 07:30 05/03/19 21:00 Recent Labs: Laboratory Last Values WBC 8.6 Th/cmm (4.8-10.8) 05/08/19 07:30 RBC 6.53 Mil/cmm (4.30-5.70) H 05/08/19 07:30 Hgb 17.1 gm/dL (12-16) 05/08/19 07:30 Hct 51.0 % (41.0-60) 05/08/19 07:30 MCV 78.0 fl (80-99) L 05/08/19 07:30 MCH 26.1 pg (26.0-30.0) 05/08/19 07:30 MCHC Differential 33.5 pg (28.0-36.0) 05/08/19 07:30 RDW 16.3 % (11.5-20.0) 05/08/19 07:30 Plt Count 198 Th/cmm (150-400) 05/08/19 07:30 MPV 7.8 fl 05/08/19 07:30 Neutrophils % 62.7 % (40.0-80.0) 05/08/19 07:30 Lymphocytes % 25.7 % (20.0-50.0) 05/08/19 07:30 Monocytes % 7.7 % (2.0-10.0) 05/08/19 07:30 Eosinophils % 3.9 % (0.0-5.0) 05/08/19 07:30 Basophils % 0.0 % (0.0-2.0) 05/08/19 07:30 PT 13.4 SECONDS (9.5-11.5) H 05/09/19 08:00 INR 1.31 (0.5-1.4) 05/09/19 08:00 Sodium 136 mEq/L (136-145) 05/03/19 21:00 Potassium 3.7 mEq/L (3.5-5.1) 05/03/19 21:00 Chloride 104 mEq/L (98-107) 05/03/19 21:00 Carbon Dioxide 22.4 mEq/L (21.0-31.0) 05/03/19 21:00 Anion Gap 13.3 (7.0-16.0) 05/03/19 21:00 BUN 23 mg/dL (7-25) 05/03/19 21:00 Creatinine 1.1 mg/dL (0.7-1.3) 05/03/19 21:00 Est GFR ( Amer) > 60.0 ml/min (>90) 05/03/19 21:00 Est GFR (Non-Af Amer) > 60.0 ml/min 05/03/19 21:00 BUN/Creatinine Ratio 20.9 05/03/19 21:00 Glucose 254 mg/dL (70-105) H 05/03/19 21:00 POC Glucose 153 MG/DL (70 - 105) H 05/07/19 14:18 Calcium 9.1 mg/dL (8.6-10.3) 05/03/19 21:00 Total Bilirubin 0.4 mg/dL (0.3-1.0) 05/03/19 21:00 AST 17 U/L (13-39) 05/03/19 21:00 ALT 15 U/L (7-52) 05/03/19 21:00 Alkaline Phosphatase 64 U/L (34-104) 05/03/19 21:00 Total Protein 7.3 gm/dL (6.0-8.3) 05/03/19 21:00 Albumin 3.9 gm/dL (4.2-5.5) L 05/03/19 21:00 Globulin 3.4 gm/dL 05/03/19 21:00 Albumin/Globulin Ratio 1.2 (1.0-1.8) 05/03/19 21:00 Triglycerides 493 mg/dL (<150) H 05/04/19 21:00 Cholesterol 186 mg/dL (<200) 05/04/19 21:00 LDL Cholesterol Direct 112 mg/dL (75-193) 05/04/19 21:00 HDL Cholesterol 33 mg/dL (23-92) 05/04/19 21:00 TSH 2.63 uIU/ml (0.34-5.60) 05/03/19 21:00 RPR NONREACTIVE (NONREACTIVE) 08/29/19 21:00 - Physical Exam Vitals and I&O: Vital Signs Temp 98.0 F 05/09/19 04:30 Pulse 82 05/09/19 08:50 Resp 19 05/09/19 04:30 BP 114/71 05/09/19 08:50 Pulse Ox 94 05/09/19 04:30 Intake & Output 05/08/19 05/09/19 05/09/19 18:59 06:59 18:59 Intake Total 1600 480 Output Total 1200 Balance 400 480 Intake: Oral 1600 480 Output: Urine 1200 Other: # Voids 2 # Bowel Movements 0 Active Medications: Current Medications Acetaminophen/Hydrocodone Bitart ([place] 5mg/325mg) 1 tab PO BID PRN PRN Reason: Pain (Moderate) Stop: 07/03/19 00:21 Last Admin: 05/07/19 20:30 Dose: 1 tab Atorvastatin Calcium (Lipitor) 20 mg PO HS [facility]; Protocol Stop: 07/03/19 20:59 Last Admin: 05/08/19 20:22 Dose: 20 mg Docusate Sodium (Colace) 100 mg PO BID [facility] Stop: 07/03/19 08:59 Last Admin: 05/09/19 08:50 Dose: 100 mg Donepezil HCl (Aricept) 10 mg PO HS [facility] Stop: 07/03/19 20:59 Last Admin: 05/08/19 20:23 Dose: 10 mg Duloxetine HCl (Cymbalta) 30 mg PO DAILY [facility]; Protocol Stop: 07/03/19 08:59 Last Admin: 05/09/19 08:50 Dose: 30 mg Fenofibrate (Tricor) 134 mg PO DAILY [facility] Stop: 07/03/19 16:59 Last Admin: 05/09/19 08:50 Dose: 134 mg Ferrous Sulfate (Iron) 325 mg PO BID [facility] Stop: 07/03/19 08:59 Last Admin: 05/09/19 08:50 Dose: 325 mg Gabapentin (Neurontin) 300 mg PO TID [facility] Stop: 07/03/19 08:59 Last Admin: 05/09/19 08:50 Dose: 300 mg Glipizide (Glucotrol) 10 mg PO QDAC [facility] Stop: 07/03/19 08:59 Last Admin: 05/09/19 07:04 Dose: 10 mg Lisinopril (Zestril) 10 mg PO DAILY [facility] Stop: 07/03/19 08:59 Last Admin: 05/09/19 08:50 Dose: 10 mg Lorazepam (Ativan) 0.5 mg PO Q4H PRN; Protocol PRN Reason: Anxiety Stop: 07/03/19 00:29 Magnesium Hydroxide (Milk Of Magnesia) 30 ml PO DAILY PRN PRN Reason: GI DISTRESS Stop: 07/03/19 00:21 Metformin HCl (Glucophage) 1,000 mg PO BID [facility] Stop: 07/03/19 08:59 Last Admin: 05/09/19 08:50 Dose: 1,000 mg Metoprolol Tartrate (Lopressor) 25 mg PO BID [facility] Stop: 07/03/19 08:59 Last Admin: 05/09/19 08:50 Dose: 25 mg Pantoprazole Sodium (Protonix) 40 mg PO QDAC [facility] Stop: 07/03/19 08:59 Last Admin: 05/09/19 07:04 Dose: 40 mg Tamsulosin HCl (Flomax) 0.4 mg PO HS [facility] Stop: 07/03/19 20:59 Last Admin: 05/08/19 20:23 Dose: 0.4 mg Warfarin Sodium (Coumadin Per Pharmacy) 1 ea [facility] PRN PRN PRN Reason: COUMADIN PER RX Stop: 07/03/19 07:56 Warfarin Sodium 5 mg/ Warfarin (Sodium 2.5 mg) 7.5 mg PO ONCE ONE Stop: 05/09/19 13:01 Zolpidem Tartrate (Ambien) 5 mg PO HS PRN PRN Reason: Insomnia Stop: 07/03/19 00:29 Last Admin: 05/08/19 23:06 Dose: 5 mg General: alert HEENT: NC/AT, PERRLA Neck: Supple Lungs: CTAB Cardiovascular: RRR, Normal S1, Normal S2, without murmur Abdomen: soft, non-tender, non-distended, positive bowel sound Extremities: excoriation Neurological: alert Internal Medicine Assmt/Plan - Assessment Assessment: - Assessment Assessment: HTN DM2 LOW ALBUMIN ELEVATED TRIGLYCERIDES BPH HX DVT RBKA - Plan Plan: - Plan Plan: SLIDING SCALE FALL PRECAUTIONS MONITOR BP CONTINUE CURRENT PLAN OF CARE nutritional support will titrate meds any rn Nutritional Asmnt/Malnutr-PDOC - Dietary Evaluation Malnutrition Findings (Please click <Entered> for more info): Nutritional Asmnt/Malnutrition Start: 05/04/19 14: 23 Text: Status: Complete Freq: Protocol: Document 05/04/19 14:23 JENIFER (Rec: 05/04/19 14:37 JENIFER [email or web address]) Nutritional Asmnt/Malnutrition Patient General Information Nutritional Screening Moderate Risk Consult Diagnosis Depression Pertinent Medical Hx/Surgical Hx HTN, DM, Anemia, Status post DVT Subjective Information IA/Consult: New admit Pt is a 53-year-old male admitted on 05/03 c/o depression. Per RN, Pt ate 100 % breakfast and 25-50% lunch today. May want to consider CCHO diet d/t hx of DM and elevated blood glucose 254 noted at admission. RN understood and will talk to . HT: 6 WT: 175 LB (79.55 kg) BMI: 23.73 (Normal) GI: WNL, Soft, Non-Tender BM: Not Noted I/O: Not Noted Skin: WNL, Intact Jorge: 16 Diet Order: Cardiac, NCS, ANGIE Estimated Energy Needs: ( Geriatric, CBW) 7776-7957 kcals (25-30 kcals/ kg) 80-95g Pro (1.0-1.2 g/kg) 4512-4709 ml (25-30 ml/kg) Current Diet Order/ Nutrition Support Cardiac, NCS, ANGIE Pertinent Medications Lipitor, Colace, Ferrous Sulfate, MOM (PRN), Glucophage , Lopressor, Protonix Pertinent Labs 05/03: Glucose 254, Alb 3.9 Nutritional Hx/Data Height 1.83 m Height (Calculated Centimeters) 182.9 Current Weight (lbs) 79.379 kg Weight (Calculated Kilograms) 79.4 Weight (Calculated Grams) 54690.7 [place] Body Weight 77.6 kg % [place] Body Weight 103 Body Mass Index (BMI) 23.7 Weight Status Approriate GI Symptoms GI Symptoms None Last BM Not Noted Skin Integrity/Comment: WNL, Intact Jorge: 16 Current %PO Fair (50-74%) Estimated Nutritional Goals BEE in Kcals: Using Current wt Calories/Kcals/Kg 25-30 Kcals Calculated 3621-6002 Protein: Using Current wt Protein g/k.0-1.2 Protein Calculated 80-95 Fluid: ml 4947-6130 ml (25-30 ml/kg) Nutritional Problem 1. Problem Problem Altered nutrition related labs Etiology r/t Endocrine dysfunction and HX DM Signs/Symptoms: aeb 05/03: Glucose 254 Malnutrition Related to Morbid Obesity Malnutrition related to morbid obesity No Intervention/Recommendation Comments 1.Continue with Cardiac, NCS, ANGIE diet as ordered. 2.Recommend CCHO diet d/t hx of DM and elevated blood glucose 254 noted at admission . 3.Continue anti-hyperglycemic medications for glucose control per MD order. Expected Outcomes/Goals Expected Outcomes/Goals 1.PO intake to meet 75% of nutritional needs. 2.Monitor PO intake, wt, skin integrity, and nutrition related labs to trend WNL. 3.F/U as moderate risk in 3-5 days, 05/07-05/09
--- NOTE | 2019-05-09 15:14 | Progress Notes ---
DATE: 05/09/2019 Case was discussed with staff of the patient, reviewed records. Covering for Dr. Yarbrough. The patient continues to have poor insight, unpredictable, impulsive. He did have episode of dizziness and the CT scan of the head did not show any abnormality. He continues to be confused. He is demented. He is on Aricept 10 mg at bedtime, Cymbalta 30 mg daily with no side effects, no sedation, no nausea and the patient continues to be depressed, isolating himself. The patient with a history of hypertension, elevated triglyceride and right below knee amputation. He is on a sliding scale, on fall precaution and no side effects with the medication. We will continue to work with the patient in group therapy, milieu therapy, and adjust medications as needed. JOB# [id number]
[2019-05-09] MEDS: Atorvastatin Calcium 10 MG TAB PO SCH (20:46)
[2019-05-10] MEDS: Pantoprazole 40 mg EC Tab PO SCH (06:44)
[2019-05-10] MEDS: Ferrous Sulfate 325 MG TAB PO SCH ×2 (08:33→17:55)
[2019-05-10] MEDS: Fenofibrate, Micronized 134 mg Cap PO SCH (09:34)
[2019-05-10] MEDS: Multivitamin w/ Minerals Tab PO SCH (09:35)
[2019-05-10 11:36] LABS: INR 1.82 (0.5-1.4)
--- NOTE | 2019-05-10 12:32 | Internal Medicine Prog Note ---
Internal Medicine Subjective - Subjective Patient seen and examined:: with staff, chart reviewed Patient is:: awake, verbal, interactive Per staff patient has:: no adverse event, no episodes of fall, poor oral intake , tolerating meds Internal Medicine Objective - Results Result Diagrams: 05/08/19 07:30 05/03/19 21:00 Recent Labs: Laboratory Last Values WBC 8.6 Th/cmm (4.8-10.8) 05/08/19 07:30 RBC 6.53 Mil/cmm (4.30-5.70) H 05/08/19 07:30 Hgb 17.1 gm/dL (12-16) 05/08/19 07:30 Hct 51.0 % (41.0-60) 05/08/19 07:30 MCV 78.0 fl (80-99) L 05/08/19 07:30 MCH 26.1 pg (26.0-30.0) 05/08/19 07:30 MCHC Differential 33.5 pg (28.0-36.0) 05/08/19 07:30 RDW 16.3 % (11.5-20.0) 05/08/19 07:30 Plt Count 198 Th/cmm (150-400) 05/08/19 07:30 MPV 7.8 fl 05/08/19 07:30 Neutrophils % 62.7 % (40.0-80.0) 05/08/19 07:30 Lymphocytes % 25.7 % (20.0-50.0) 05/08/19 07:30 Monocytes % 7.7 % (2.0-10.0) 05/08/19 07:30 Eosinophils % 3.9 % (0.0-5.0) 05/08/19 07:30 Basophils % 0.0 % (0.0-2.0) 05/08/19 07:30 PT 18.4 SECONDS (9.5-11.5) H 05/10/19 11:15 INR 1.82 (0.5-1.4) H 05/10/19 11:15 Sodium 136 mEq/L (136-145) 05/03/19 21:00 Potassium 3.7 mEq/L (3.5-5.1) 05/03/19 21:00 Chloride 104 mEq/L (98-107) 05/03/19 21:00 Carbon Dioxide 22.4 mEq/L (21.0-31.0) 05/03/19 21:00 Anion Gap 13.3 (7.0-16.0) 05/03/19 21:00 BUN 23 mg/dL (7-25) 05/03/19 21:00 Creatinine 1.1 mg/dL (0.7-1.3) 05/03/19 21:00 Est GFR ( Amer) > 60.0 ml/min (>90) 05/03/19 21:00 Est GFR (Non-Af Amer) > 60.0 ml/min 05/03/19 21:00 BUN/Creatinine Ratio 20.9 05/03/19 21:00 Glucose 254 mg/dL (70-105) H 05/03/19 21:00 POC Glucose 153 MG/DL (70 - 105) H 05/07/19 14:18 Calcium 9.1 mg/dL (8.6-10.3) 05/03/19 21:00 Total Bilirubin 0.4 mg/dL (0.3-1.0) 05/03/19 21:00 AST 17 U/L (13-39) 05/03/19 21:00 ALT 15 U/L (7-52) 05/03/19 21:00 Alkaline Phosphatase 64 U/L (34-104) 05/03/19 21:00 Total Protein 7.3 gm/dL (6.0-8.3) 05/03/19 21:00 Albumin 3.9 gm/dL (4.2-5.5) L 05/03/19 21:00 Globulin 3.4 gm/dL 05/03/19 21:00 Albumin/Globulin Ratio 1.2 (1.0-1.8) 05/03/19 21:00 Triglycerides 493 mg/dL (<150) H 05/04/19 21:00 Cholesterol 186 mg/dL (<200) 05/04/19 21:00 LDL Cholesterol Direct 112 mg/dL (75-193) 05/04/19 21:00 HDL Cholesterol 33 mg/dL (23-92) 05/04/19 21:00 TSH 2.63 uIU/ml (0.34-5.60) 05/03/19 21:00 RPR NONREACTIVE (NONREACTIVE) 05/03/19 21:00 - Physical Exam Vitals and I&O: Vital Signs Temp 97.7 F 05/09/19 14:00 Pulse 81 05/10/19 09:34 Resp 18 05/09/19 14:00 BP 119/71 05/10/19 09:34 Pulse Ox 95 05/09/19 14:00 Intake & Output 05/09/19 05/10/19 05/10/19 18:59 06:59 18:59 Intake Total 1320 Balance 1320 Intake: Oral 1080 Other 240 Other: # Voids 3 # Bowel Movements 1 Active Medications: Current Medications Acetaminophen/Hydrocodone Bitart ([place] 5mg/325mg) 1 tab PO BID PRN PRN Reason: Pain (Moderate) Stop: 07/03/19 00:21 Last Admin: 05/07/19 20:30 Dose: 1 tab Atorvastatin Calcium (Lipitor) 20 mg PO HS [facility]; Protocol Stop: 07/03/19 20:59 Last Admin: 05/09/19 20:46 Dose: 20 mg Docusate Sodium (Colace) 100 mg PO BID [facility] Stop: 07/03/19 08:59 Last Admin: 05/10/19 09:33 Dose: 100 mg Donepezil HCl (Aricept) 10 mg PO HS [facility] Stop: 07/03/19 20:59 Last Admin: 05/09/19 20:46 Dose: 10 mg Duloxetine HCl (Cymbalta) 30 mg PO DAILY [facility]; Protocol Stop: 07/03/19 08:59 Last Admin: 05/10/19 09:34 Dose: 30 mg Fenofibrate (Tricor) 134 mg PO DAILY [facility] Stop: 07/03/19 16:59 Last Admin: 05/10/19 09:34 Dose: 134 mg Ferrous Sulfate (Iron) 325 mg PO BID [facility] Stop: 07/03/19 08:59 Last Admin: 05/09/19 16:29 Dose: 325 mg Gabapentin (Neurontin) 300 mg PO TID [facility] Stop: 07/03/19 08:59 Last Admin: 05/10/19 09:33 Dose: 300 mg Glipizide (Glucotrol) 10 mg PO QDAC [facility] Stop: 07/03/19 08:59 Last Admin: 05/10/19 06:44 Dose: 10 mg Lisinopril (Zestril) 10 mg PO DAILY [facility] Stop: 07/03/19 08:59 Last Admin: 05/10/19 09:32 Dose: 10 mg Lorazepam (Ativan) 0.5 mg PO Q4H PRN; Protocol PRN Reason: Anxiety Stop: 07/03/19 00:29 Magnesium Hydroxide (Milk Of Magnesia) 30 ml PO DAILY PRN PRN Reason: GI DISTRESS Stop: 07/03/19 00:21 Metformin HCl (Glucophage) 1,000 mg PO BID [facility] Stop: 07/03/19 08:59 Last Admin: 05/10/19 09:34 Dose: 1,000 mg Metoprolol Tartrate (Lopressor) 25 mg PO BID [facility] Stop: 07/03/19 08:59 Last Admin: 05/10/19 09:34 Dose: 25 mg Pantoprazole Sodium (Protonix) 40 mg PO QDAC [facility] Stop: 07/03/19 08:59 Last Admin: 05/10/19 06:44 Dose: 40 mg Tamsulosin HCl (Flomax) 0.4 mg PO HS [facility] Stop: 07/03/19 20:59 Last Admin: 05/09/19 20:47 Dose: 0.4 mg Warfarin Sodium (Coumadin Per Pharmacy) 1 ea [facility] PRN PRN PRN Reason: COUMADIN PER RX Stop: 07/03/19 07:56 Zolpidem Tartrate (Ambien) 5 mg PO HS PRN PRN Reason: Insomnia Stop: 07/03/19 00:29 Last Admin: 05/09/19 20:47 Dose: 5 mg General: alert HEENT: NC/AT, PERRLA Neck: Supple Lungs: CTAB Cardiovascular: RRR, Normal S1, Normal S2, without murmur Abdomen: soft, non-tender, non-distended, positive bowel sound Extremities: excoriation Neurological: alert Internal Medicine Assmt/Plan - Assessment Assessment: - Assessment Assessment: HTN DM2 LOW ALBUMIN ELEVATED TRIGLYCERIDES BPH HX DVT RBKA - Plan Plan: - Plan Plan: SLIDING SCALE FALL PRECAUTIONS MONITOR BP CONTINUE CURRENT PLAN OF CARE nutritional support will titrate meds any vora Nutritional Asmnt/Malnutr-PDOC - Dietary Evaluation Malnutrition Findings (Please click <Entered> for more info): Nutritional Asmnt/Malnutrition Start: 05/04/19 14: 23 Text: Status: Complete Freq: Protocol: Document 05/04/19 14:23 HOMAELISACATRACHO (Rec: 05/04/19 14:37 HOMAELISACATRACHO [email or web address]) Nutritional Asmnt/Malnutrition Patient General Information Nutritional Screening Moderate Risk Consult Diagnosis Depression Pertinent Medical Hx/Surgical Hx HTN, DM, Anemia, Status post DVT Subjective Information IA/Consult: New admit Pt is a 53-year-old male admitted on 05/03 c/o depression. Per RN, Pt ate 100 % breakfast and 25-50% lunch today. May want to consider CCHO diet d/t hx of DM and elevated blood glucose 254 noted at admission. RN understood and will talk to MD . HT: 6 WT: 175 LB (79.55 kg) BMI: 23.73 (Normal) GI: WNL, Soft, Non-Tender BM: Not Noted I/O: Not Noted Skin: WNL, Intact Jorge: 16 Diet Order: Cardiac, NCS, ANGIE Estimated Energy Needs: ( Geriatric, CBW) 6975-0039 kcals (25-30 kcals/ kg) 80-95g Pro (1.0-1.2 g/kg) 6359-7256 ml (25-30 ml/kg) Current Diet Order/ Nutrition Support Cardiac, NCS, ANGIE Pertinent Medications Lipitor, Colace, Ferrous Sulfate, MOM (PRN), Glucophage , Lopressor, Protonix Pertinent Labs 05/03: Glucose 254, Alb 3.9 Nutritional Hx/Data Height 1.83 m Height (Calculated Centimeters) 182.9 Current Weight (lbs) 79.379 kg Weight (Calculated Kilograms) 79.4 Weight (Calculated Grams) 51602.7 [place] Body Weight 77.6 kg % [place] Body Weight 103 Body Mass Index (BMI) 23.7 Weight Status Approriate GI Symptoms GI Symptoms None Last BM Not Noted Skin Integrity/Comment: WNL, Intact Jorge: 16 Current %PO Fair (50-74%) Estimated Nutritional Goals BEE in Kcals: Using Current wt Calories/Kcals/Kg 25-30 Kcals Calculated 0086-5648 Protein: Using Current wt Protein g/k.0-1.2 Protein Calculated 80-95 Fluid: ml 8042-1893 ml (25-30 ml/kg) Nutritional Problem 1. Problem Problem Altered nutrition related labs Etiology r/t Endocrine dysfunction and HX DM Signs/Symptoms: aeb 05/03: Glucose 254 Malnutrition Related to Morbid Obesity Malnutrition related to morbid obesity No Intervention/Recommendation Comments 1.Continue with Cardiac, NCS, ANGIE diet as ordered. 2.Recommend CCHO diet d/t hx of DM and elevated blood glucose 254 noted at admission . 3.Continue anti-hyperglycemic medications for glucose control per MD order. Expected Outcomes/Goals Expected Outcomes/Goals 1.PO intake to meet 75% of nutritional needs. 2.Monitor PO intake, wt, skin integrity, and nutrition related labs to trend WNL. 3.F/U as moderate risk in 3-5 days, 05/07-05/09
--- NOTE | 2019-05-10 13:24 | Progress Notes ---
DATE: 05/10/2019 SUBJECTIVE: Case was discussed with staff of the patient, reviewed records. The patient is starting to show some progress. Sleeping better, eating better, tolerated the Cymbalta with no side effects. Continues to be demented, confused, unable to make safe plan for self-care, unpredictable, impulsive, needing redirection. We will continue outpatient group therapy, milieu therapy, adjust medication as needed. [facility]# [id number]
[2019-05-10] MEDS: Atorvastatin Calcium 10 MG TAB PO SCH (21:03)
[2019-05-11] MEDS: Pantoprazole 40 mg EC Tab PO SCH (07:00)
[2019-05-11] MEDS: Multivitamin w/ Minerals Tab PO SCH (09:10)
[2019-05-11] MEDS: Fenofibrate, Micronized 134 mg Cap PO SCH (09:10)
[2019-05-11] MEDS: Ferrous Sulfate 325 MG TAB PO SCH (09:10)
--- NOTE | 2019-05-11 12:52 | Internal Medicine Prog Note ---
Internal Medicine Subjective - Subjective Patient seen and examined:: with staff, chart reviewed Patient is:: awake, verbal, interactive Per staff patient has:: no adverse event, no episodes of fall, poor oral intake , tolerating meds Internal Medicine Objective - Results Result Diagrams: 05/08/19 07:30 05/03/19 21:00 Recent Labs: Laboratory Last Values WBC 8.6 Th/cmm (4.8-10.8) 05/08/19 07:30 RBC 6.53 Mil/cmm (4.30-5.70) H 05/08/19 07:30 Hgb 17.1 gm/dL (12-16) 05/08/19 07:30 Hct 51.0 % (41.0-60) 05/08/19 07:30 MCV 78.0 fl (80-99) L 05/08/19 07:30 MCH 26.1 pg (26.0-30.0) 05/08/19 07:30 MCHC Differential 33.5 pg (28.0-36.0) 05/08/19 07:30 RDW 16.3 % (11.5-20.0) 05/08/19 07:30 Plt Count 198 Th/cmm (150-400) 05/08/19 07:30 MPV 7.8 fl 05/08/19 07:30 Neutrophils % 62.7 % (40.0-80.0) 05/08/19 07:30 Lymphocytes % 25.7 % (20.0-50.0) 05/08/19 07:30 Monocytes % 7.7 % (2.0-10.0) 05/08/19 07:30 Eosinophils % 3.9 % (0.0-5.0) 05/08/19 07:30 Basophils % 0.0 % (0.0-2.0) 05/08/19 07:30 PT 18.4 SECONDS (9.5-11.5) H 05/10/19 11:15 INR 1.82 (0.5-1.4) H 05/10/19 11:15 Sodium 136 mEq/L (136-145) 05/03/19 21:00 Potassium 3.7 mEq/L (3.5-5.1) 05/03/19 21:00 Chloride 104 mEq/L (98-107) 05/03/19 21:00 Carbon Dioxide 22.4 mEq/L (21.0-31.0) 05/03/19 21:00 Anion Gap 13.3 (7.0-16.0) 05/03/19 21:00 BUN 23 mg/dL (7-25) 05/03/19 21:00 Creatinine 1.1 mg/dL (0.7-1.3) 05/03/19 21:00 Est GFR ( Amer) > 60.0 ml/min (>90) 05/03/19 21:00 Est GFR (Non-Af Amer) > 60.0 ml/min 05/03/19 21:00 BUN/Creatinine Ratio 20.9 05/03/19 21:00 Glucose 254 mg/dL (70-105) H 05/03/19 21:00 POC Glucose 121 MG/DL (70 - 105) H 05/11/19 06:53 Calcium 9.1 mg/dL (8.6-10.3) 05/03/19 21:00 Total Bilirubin 0.4 mg/dL (0.3-1.0) 05/03/19 21:00 AST 17 U/L (13-39) 05/03/19 21:00 ALT 15 U/L (7-52) 05/03/19 21:00 Alkaline Phosphatase 64 U/L (34-104) 05/03/19 21:00 Total Protein 7.3 gm/dL (6.0-8.3) 05/03/19 21:00 Albumin 3.9 gm/dL (4.2-5.5) L 05/03/19 21:00 Globulin 3.4 gm/dL 05/03/19 21:00 Albumin/Globulin Ratio 1.2 (1.0-1.8) 05/03/19 21:00 Triglycerides 493 mg/dL (<150) H 05/04/19 21:00 Cholesterol 186 mg/dL (<200) 05/04/19 21:00 LDL Cholesterol Direct 112 mg/dL (75-193) 05/04/19 21:00 HDL Cholesterol 33 mg/dL (23-92) 05/04/19 21:00 TSH 2.63 uIU/ml (0.34-5.60) 05/03/19 21:00 RPR NONREACTIVE (NONREACTIVE) 05/03/19 21:00 - Physical Exam Vitals and I&O: Vital Signs Temp 97.5 F 05/11/19 05:56 Pulse 83 05/11/19 05:56 Resp 20 05/11/19 05:56 BP 102/66 05/11/19 05:56 Pulse Ox 97 05/11/19 05:56 Intake & Output 05/10/19 05/11/19 05/11/19 18:59 06:59 18:59 Intake Total 1400 240 Balance 1400 240 Intake: Oral 1400 240 Other: # Voids 2 # Bowel Movements 0 Active Medications: Current Medications Acetaminophen/Hydrocodone Bitart ([place] 5mg/325mg) 1 tab PO BID PRN PRN Reason: Pain (Moderate) Stop: 07/03/19 00:21 Last Admin: 05/07/19 20:30 Dose: 1 tab Atorvastatin Calcium (Lipitor) 20 mg PO HS [facility]; Protocol Stop: 07/03/19 20:59 Last Admin: 05/10/19 21:03 Dose: 20 mg Docusate Sodium (Colace) 100 mg PO BID [facility] Stop: 07/03/19 08:59 Last Admin: 05/11/19 09:10 Dose: 100 mg Donepezil HCl (Aricept) 10 mg PO HS [facility] Stop: 07/03/19 20:59 Last Admin: 05/10/19 21:03 Dose: 10 mg Duloxetine HCl (Cymbalta) 30 mg PO DAILY [facility]; Protocol Stop: 07/03/19 08:59 Last Admin: 05/11/19 09:10 Dose: 30 mg Fenofibrate (Tricor) 134 mg PO DAILY [facility] Stop: 07/03/19 16:59 Last Admin: 05/11/19 09:10 Dose: 134 mg Ferrous Sulfate (Iron) 325 mg PO BID [facility] Stop: 07/03/19 08:59 Last Admin: 05/11/19 09:10 Dose: 325 mg Gabapentin (Neurontin) 300 mg PO TID [facility] Stop: 07/03/19 08:59 Last Admin: 05/11/19 09:09 Dose: 300 mg Glipizide (Glucotrol) 10 mg PO QDAC [facility] Stop: 07/03/19 08:59 Last Admin: 05/11/19 07:00 Dose: 10 mg Lisinopril (Zestril) 10 mg PO DAILY [facility] Stop: 07/03/19 08:59 Last Admin: 05/11/19 09:09 Dose: Not Given Lorazepam (Ativan) 0.5 mg PO Q4H PRN; Protocol PRN Reason: Anxiety Stop: 07/03/19 00:29 Magnesium Hydroxide (Milk Of Magnesia) 30 ml PO DAILY PRN PRN Reason: GI DISTRESS Stop: 07/03/19 00:21 Metformin HCl (Glucophage) 1,000 mg PO BID [facility] Stop: 07/03/19 08:59 Last Admin: 05/11/19 09:10 Dose: 1,000 mg Metoprolol Tartrate (Lopressor) 25 mg PO BID [facility] Stop: 07/03/19 08:59 Last Admin: 05/11/19 09:11 Dose: Not Given Pantoprazole Sodium (Protonix) 40 mg PO QDAC [facility] Stop: 07/03/19 08:59 Last Admin: 05/11/19 07:00 Dose: 40 mg Tamsulosin HCl (Flomax) 0.4 mg PO HS [facility] Stop: 07/03/19 20:59 Last Admin: 05/10/19 21:03 Dose: 0.4 mg Warfarin Sodium (Coumadin Per Pharmacy) 1 ea [facility] PRN PRN PRN Reason: COUMADIN PER RX Stop: 07/03/19 07:56 Zolpidem Tartrate (Ambien) 5 mg PO HS PRN PRN Reason: Insomnia Stop: 07/03/19 00:29 Last Admin: 05/09/19 20:47 Dose: 5 mg General: alert HEENT: NC/AT, PERRLA Neck: Supple Lungs: CTAB Cardiovascular: RRR, Normal S1, Normal S2, without murmur Abdomen: soft, non-tender, non-distended, positive bowel sound Extremities: excoriation Neurological: alert Internal Medicine Assmt/Plan - Assessment Assessment: - Assessment Assessment: HTN DM2 LOW ALBUMIN ELEVATED TRIGLYCERIDES BPH HX DVT RBKA - Plan Plan: - Plan Plan: SLIDING SCALE FALL PRECAUTIONS MONITOR BP CONTINUE CURRENT PLAN OF CARE nutritional support will titrate meds any vora Nutritional Asmnt/Malnutr-PDOC - Dietary Evaluation Malnutrition Findings (Please click <Entered> for more info): Nutritional Asmnt/Malnutrition Start: 05/04/19 14: 23 Text: Status: Complete Freq: Protocol: Document 05/04/19 14:23 JENIFER (Rec: 05/04/19 14:37 JENIFER [email or web address]) Nutritional Asmnt/Malnutrition Patient General Information Nutritional Screening Moderate Risk Consult Diagnosis Depression Pertinent Medical Hx/Surgical Hx HTN, DM, Anemia, Status post DVT Subjective Information IA/Consult: New admit Pt is a 53-year-old male admitted on 05/03 c/o depression. Per RN, Pt ate 100 % breakfast and 25-50% lunch today. May want to consider CCHO diet d/t hx of DM and elevated blood glucose 254 noted at admission. RN understood and will talk to MD . HT: 6 WT: 175 LB (79.55 kg) BMI: 23.73 (Normal) GI: WNL, Soft, Non-Tender BM: Not Noted I/O: Not Noted Skin: WNL, Intact Jorge: 16 Diet Order: Cardiac, NCS, ANGIE Estimated Energy Needs: ( Geriatric, CBW) 9476-9764 kcals (25-30 kcals/ kg) 80-95g Pro (1.0-1.2 g/kg) 4933-0000 ml (25-30 ml/kg) Current Diet Order/ Nutrition Support Cardiac, NCS, ANGIE Pertinent Medications Lipitor, Colace, Ferrous Sulfate, MOM (PRN), Glucophage , Lopressor, Protonix Pertinent Labs 05/03: Glucose 254, Alb 3.9 Nutritional Hx/Data Height 1.83 m Height (Calculated Centimeters) 182.9 Current Weight (lbs) 79.379 kg Weight (Calculated Kilograms) 79.4 Weight (Calculated Grams) 64312.7 [place] Body Weight 77.6 kg % [place] Body Weight 103 Body Mass Index (BMI) 23.7 Weight Status Approriate GI Symptoms GI Symptoms None Last BM Not Noted Skin Integrity/Comment: WNL, Intact Jorge: 16 Current %PO Fair (50-74%) Estimated Nutritional Goals BEE in Kcals: Using Current wt Calories/Kcals/Kg 25-30 Kcals Calculated 5061-1786 Protein: Using Current wt Protein g/k.0-1.2 Protein Calculated 80-95 Fluid: ml 3021-1813 ml (25-30 ml/kg) Nutritional Problem 1. Problem Problem Altered nutrition related labs Etiology r/t Endocrine dysfunction and HX DM Signs/Symptoms: aeb 05/03: Glucose 254 Malnutrition Related to Morbid Obesity Malnutrition related to morbid obesity No Intervention/Recommendation Comments 1.Continue with Cardiac, NCS, ANGIE diet as ordered. 2.Recommend CCHO diet d/t hx of DM and elevated blood glucose 254 noted at admission . 3.Continue anti-hyperglycemic medications for glucose control per MD order. Expected Outcomes/Goals Expected Outcomes/Goals 1.PO intake to meet 75% of nutritional needs. 2.Monitor PO intake, wt, skin integrity, and nutrition related labs to trend WNL. 3.F/U as moderate risk in 3-5 days, 05/07-05/09
[2019-05-11 13:14] LABS: INR 2.4 (0.5-1.4)
--- NOTE | 2019-05-11 13:31 | Discharge Summary ---
DATE OF DISCHARGE: 05/11/2019 IDENTIFYING INFORMATION: The patient is a 59-year-old male. CHIEF COMPLAINT: "I need a HOME CARE SPECIALIST checkup." HISTORY OF PRESENT ILLNESS: The patient is a poor historian, disoriented, this was done by Dr. Juarez . pt is confused belve it is 1998 He also says month is May 04. The patient is hopeless, thoughts, despair, confused, mostly depressed, withdrawn, not really making much sense on exam. The patient has been isolating depressed. The patient was diagnosed with dementia, mood disorder, nonspecified. The patient also with multiple physical problems. He has below right knee amputation with a history of deep vein thrombosis, diabetes, and hypertension. ALLERGIES: THE PATIENT IS ALLERGIC TO PENICILLIN. COURSE IN THE HOSPITAL: The patient will continue with Aricept 10 mg at bedtime, Cymbalta 30 mg daily, fenofibrate, iron, gabapentin, glipizide for his diabetes, given hydrocodone as needed, and lisinopril. The patient also is on metformin, metoprolol, multivitamin, pantoprazole, and Flomax for benign prostatic hypertrophy, warfarin because of deep vein thrombosis. The patient progressively got better. Complaining of dizziness. CT scan was ordered by Dr. Albarado that showed no acute abnormality. The patient seems to have reached maximum benefit from hospitalization and he will be going back to a nursing facility. So, we felt he could be discharged to treat it at a lesser level of care. CONDITION UPON DISCHARGE: The patient was feeling good and in general sleeping well, eating well, not sure of the date. He will be going to SNF facility where he was at. He will continue with the same medications. FINAL DIAGNOSES: Dementia, mood disorder, not otherwise specified. The patient will follow up with the psychiatrist, primary care physician at the facility. EXPECTED OUTCOME: Stable if the patient complies with the above. JOB# [id number] MAKI
== END 2019-05-11 17:35 | DRG 885 ==
LOC: ER 20:18 → GERO2 21:55
PROVIDERS: ADMIT Psychiatry & Neurology Psychiatry; ATTEND Psychiatry & Neurology Psychiatry
DX: F39 Unspecified mood [affective] disorder (principal); F03.90 Unspecified dementia, unspecified severity, without behavioral disturbance, psychotic disturbance, mood disturbance, and anxiety; I10 Essential (primary) hypertension; E11.9 Type 2 diabetes mellitus without complications; N40.0 Benign prostatic hyperplasia without lower urinary tract symptoms; R74.8 Abnormal levels of other serum enzymes; Z88.0 Allergy status to penicillin; Z89.511 Acquired absence of right leg below knee; Z86.718 Personal history of other venous thrombosis and embolism; Z79.01 Long term (current) use of anticoagulants; Z79.899 Other long term (current) drug therapy
CPT/HCPCS: 36415-UA; 70450-TC; 80053-TC; 80061-TC; 82948-90; 83036-90; 84443-TC; 85025-TC; 85610-TC; 86592-TC; 93005; Z7610

== ENCOUNTER 2019-10-26 20:03 | Inpatient (IN) | payer MEDICARE, OTHER ==
[2019-10-27 10:37] VITALS: BP 122/61
[2019-10-27] MEDS ORDERED: Maalox 30 mL Cup PO PRN (10:42)
[2019-10-27] MEDS ORDERED: Hydrocodone/APAP 5mg/325mg Tab PO PRN (12:05)
--- NOTE | 2019-10-27 13:04 | History & Physical ---
ADMIT DATE: 10/27/2019 HISTORY OF PRESENT ILLNESS: This is a 59-year-old male who is medically cleared from [facility], who is a [facility] resident of [facility], he is now admitted here to the Geropsych Unit for agitation. PAST MEDICAL HISTORY: Hypertension; DVT, bilateral lower extremity; type 2 diabetes; anemia; hyperlipidemia; depression. PAST SURGICAL HISTORY: Unknown. ALLERGIES: PENICILLIN. SOCIAL HISTORY: The patient is a [facility] resident requiring 24-hour nursing care. REVIEW OF SYSTEMS: GENERAL: Denies any fever or chills. CARDIOVASCULAR: Denies chest pain. RESPIRATORY: Denies shortness of breath. GASTROINTESTINAL: Denies nausea, vomiting, abdominal pain. GENITOURINARY: Denies increased frequency. NEUROLOGIC: No headaches, seizures or syncope. PHYSICAL EXAMINATION: GENERAL: The patient is well developed, well nourished, no apparent distress. VITAL SIGNS: Blood pressure 122/61. All other vitals are currently pending. HEENT: Head: Normocephalic, atraumatic. NECK: Supple. No mass. LUNGS: Clear bilaterally. HEART: Regular rate and rhythm. ABDOMEN: Soft, nontender. EXTREMITIES: No edema noted. ASSESSMENT: Agitation, hypertension, type 2 diabetes, anemia, hyperlipidemia, major depressive disorder. PLAN: We will do sliding scale per policy. We will do a diabetic diet. We will continue the patient's home medications. Fall precautions will be initiated. We will continue to follow this patient. [facility]# [id number]
[2019-10-27] MEDS: Ferrous Sulfate 325 MG TAB PO SCH (16:54)
[2019-10-27] MEDS: INSULIN LISPRO SLIDING SCALE 100 UNITS/ML UNIT SUBQ SCH ×2 (17:00→21:50)
--- NOTE | 2019-10-27 20:03 | Psychiatric Evaluation ---
DATE OF SERVICE: 10/27/2019 IDENTIFYING DATA: The patient is a 59-year-old male, resident of [facility]. Information obtained by directly interviewing the patient as well as reviewing the admission papers. JUSTIFICATION OF HOSPITALIZATION: The patient is admitted on a voluntary basis in view of his depression. CHIEF COMPLAINT: "I'm feeling down." HISTORY OF PRESENT ILLNESS: This is the first psychiatric hospitalization to [facility] for this patient who is reported to have been depressed and refusing to shower and isolating himself and getting easily agitated at least for the past 2 weeks. The patient could not be continued to lower level of care and hence the patient has been referred over here for further stabilization. 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 The patient is reported to have been isolating himself and hence the patient has been referred over here for further stabilization. Prior to the hospitalization, the patient is reported to be treated with Cymbalta for his depression. The patient has been also getting the donepezil 10 mg. The patient is being treated for his diabetes and hypertension. PAST PSYCHIATRIC HISTORY: The patient denies any prior psychiatric hospitalizations. MEDICAL HISTORY AND PHYSICAL EXAMINATION: Requested by Dr. Albarado. SUBSTANCE ABUSE HISTORY: The patient denies use of any drugs or alcohol. SOCIAL HISTORY: The patient is a resident of the [facility]. FAMILY HISTORY: Not significant for any major psychiatric problems. STRENGTH AND ASSETS: The patient is motivated. MENTAL STATUS EXAMINATION: The patient is a 59-year-old, looking his stated age, cooperative. Eye contact is fair. Mood is noted to bit depressed. Affect is constricted. The patient's insight and judgment at this time are noted to be still impaired. Impulse control is noted to be poor. The patient is reluctant to take a shower. The patient is isolating himself. The patient is not presenting with any clear suicidal ideation, but the patient feels helpless and hopeless and feels frustrated. The patient denies any command hallucinations. No delusions are noted at this time. The patient is willing to comply with the treatment. The patient is alert and oriented to time, place, person and situation. DIAGNOSES: AXIS I: Major depressive disorder, recurrent and moderate. AXIS II: None. AXIS III: None. IMMEDIATE TREATMENT PLAN: The patient is going to be observed on inpatient unit, provided with supportive psychotherapy. The patient is going to be closely monitored and will be continued on the [facility]. ESTIMATED LENGTH OF STAY: 5-7 days. DISCHARGE CRITERIA: When he no longer a threat to self or others and be able to cope up with the stress. [facility]# [id number]
[2019-10-27] MEDS: Atorvastatin Calcium 10 MG TAB PO SCH (21:17)
[2019-10-28] MEDS: Pantoprazole 40 mg EC Tab PO SCH (06:38)
[2019-10-28] MEDS: INSULIN LISPRO SLIDING SCALE 100 UNITS/ML UNIT SUBQ SCH ×4 (06:45→20:57)
[2019-10-28] MEDS: Multivitamin w/ Minerals Tab PO SCH (08:59)
[2019-10-28] MEDS: Ferrous Sulfate 325 MG TAB PO SCH ×2 (08:59→16:54)
--- NOTE | 2019-10-28 13:09 | Internal Medicine Prog Note ---
Internal Medicine Subjective - Subjective Service Date: 10/28/19 Patient seen and examined:: with staff Patient is:: awake, verbal Per staff patient has:: tolerating meds Internal Medicine Objective - Results Recent Labs: Laboratory Last Values POC Glucose 225 MG/DL (70 - 105) H 10/28/19 11:57 - Physical Exam Vitals and I&O: Vital Signs Temp 98.8 F 10/28/19 07:09 Pulse 90 10/28/19 08:59 Resp 19 10/28/19 07:09 BP 148/84 10/28/19 08:59 Pulse Ox 94 10/28/19 07:09 Intake & Output 10/27/19 10/28/19 10/28/19 18:59 06:59 18:59 Intake Total 960 240 Balance 960 240 Weight (lbs) 203 lb Intake: Oral 960 240 Other: # Voids 3 2 1 # Bowel Movements 0 Stool Characteristics Formed Weight Source Patient stated Active Medications: Current Medications Acetaminophen (Tylenol) 650 mg PO Q4H PRN PRN Reason: Pain (Mild 1-3) Stop: 12/26/19 10:41 Acetaminophen (Tylenol) 650 mg PO Q4HR PRN PRN Reason: Temperature Above 100 Stop: 12/26/19 10:41 Acetaminophen/Hydrocodone Bitart ([place] 5mg/325mg) 1 tab PO Q12H PRN PRN Reason: Pain (Moderate 4-6) Stop: 12/26/19 12:04 Al Hydrox/Mg Hydrox/Simethicone (Maalox) 30 ml PO Q4HR PRN PRN Reason: GI DISTRESS Stop: 12/26/19 10:41 Atorvastatin Calcium (Lipitor) 20 mg PO HS [facility]; Protocol Stop: 12/26/19 20:59 Last Admin: 10/27/19 21:17 Dose: 20 mg Divalproex Sodium (Depakote Dr) 250 mg PO Q12HR [facility]; Protocol Stop: 12/26/19 12:14 Docusate Sodium (Colace) 100 mg PO BID [facility] Stop: 12/26/19 16:59 Last Admin: 10/28/19 08:59 Dose: 100 mg Donepezil HCl (Aricept) 10 mg PO HS [facility] Stop: 12/26/19 20:59 Last Admin: 10/27/19 21:18 Dose: 10 mg Duloxetine HCl (Cymbalta) [address] [facility]; Protocol Stop: 12/27/19 08:59 Last Admin: 10/28/19 08:59 Dose: 30 mg Fenofibrate (Tricor) [address] [facility] Stop: 12/27/19 08:59 Ferrous Sulfate (Iron) [address] [facility] Stop: 12/26/19 16:59 Last Admin: 10/28/19 08:59 Dose: 325 mg Gabapentin (Neurontin) [address] [facility] Stop: 12/26/19 13:59 Last Admin: 10/28/19 08:59 Dose: 300 mg Glipizide (Glucotrol) [address] [facility] Stop: 12/26/19 16:59 Last Admin: 10/27/19 16:58 Dose: 10 mg Insulin Human Lispro (Humalog Insulin Sliding Scale) 0 units SUBQ [facility]; Protocol Stop: 12/26/19 16:29 Last Admin: 10/28/19 12:07 Dose: 4 units Lisinopril (Zestril) [address] [facility] Stop: 12/27/19 08:59 Last Admin: 10/28/19 08:58 Dose: 10 mg Metoprolol Tartrate (Lopressor) [address] [facility] Stop: 12/26/19 16:59 Last Admin: 10/28/19 08:59 Dose: 25 mg Pantoprazole Sodium (Protonix) [address] [facility] Stop: 12/27/19 07:29 Last Admin: 10/28/19 06:38 Dose: 40 mg Tamsulosin HCl (Flomax) 0.[address] [facility] Stop: 12/26/19 20:59 Last Admin: 10/27/19 21:18 Dose: 0.4 mg Warfarin Sodium (Coumadin Per Pharmacy) 1 ea [facility] PRN PRN; Protocol PRN Reason: COUMADIN PER RX Stop: 12/26/19 12:04 Zolpidem Tartrate (Ambien) 5 mg PO HS PRN PRN Reason: Insomnia Stop: 12/26/19 12:04 Last Admin: 10/27/19 21:18 Dose: 5 mg General: alert HEENT: NC/AT, PERRLA Neck: Supple Lungs: CTAB Abdomen: soft, non-tender, non-distended Neurological: alert Internal Medicine Assmt/Plan - Assessment Assessment: ASSESSMENT: Agitation, hypertension, type 2 diabetes, anemia, hyperlipidemia, major depressive disorder. - Plan Plan: PLAN: accucheck , diabetic diet. We will continue the patient's home medications. Fall precautions will be initiated. We will continue to follow this patient.
--- NOTE | 2019-10-28 18:14 | Progress Notes ---
DATE: 10/28/2019 PSYCHIATRIC PROGRESS NOTE SUBJECTIVE: Staff was spoken to. The patient is interviewed. Mood is noted to be irritable. Affect is constricted. The patient is isolative and withdrawn. The patient is stating that he was not able to sleep well last night because it was too much of noise. The patient has been having difficult time to cope with the stress. ASSESSMENT: The patient is still depressed. PLAN: To continue the patient with Cymbalta and I encouraged the patient to verbalize the concerns rather than to act out. Once stabilized, the patient is going to be discharged to [facility] to be followed up on an outpatient basis. JOB# [id number]
[2019-10-28] MEDS: Atorvastatin Calcium 10 MG TAB PO SCH (20:56)
[2019-10-29] MEDS: INSULIN LISPRO SLIDING SCALE 100 UNITS/ML UNIT SUBQ SCH ×4 (06:56→20:45)
[2019-10-29] MEDS: Pantoprazole 40 mg EC Tab PO SCH (06:56)
[2019-10-29] MEDS: Ferrous Sulfate 325 MG TAB PO SCH ×2 (08:10→17:57)
[2019-10-29] MEDS: Multivitamin w/ Minerals Tab PO SCH (08:10)
[2019-10-29] MEDS: Fenofibrate, Micronized 134 mg Cap PO SCH (09:41)
--- NOTE | 2019-10-29 13:08 | Internal Medicine Prog Note ---
Internal Medicine Subjective - Subjective Patient seen and examined:: with staff, chart reviewed Patient is:: awake, verbal, interactive Per staff patient has:: no adverse event, no episodes of fall, tolerating meds Internal Medicine Objective - Results Recent Labs: Laboratory Last Values POC Glucose 141 MG/DL (70 - 105) H 10/29/19 11:15 - Physical Exam Vitals and I&O: Vital Signs Temp 98.1 F 10/28/19 20:00 Pulse 75 10/29/19 11:00 Resp 19 10/28/19 20:00 BP 93/57 10/29/19 11:00 Pulse Ox 96 10/28/19 20:00 Intake & Output 10/28/19 10/29/19 10/29/19 18:59 06:59 18:59 Intake Total 1200 460 Output Total 600 Balance 600 460 Intake: Oral 1200 460 Output: Urine 600 Other: # Voids 1 3 # Bowel Movements 0 Stool Characteristics Formed Formed Active Medications: Current Medications Acetaminophen (Tylenol) 650 mg PO Q4H PRN PRN Reason: Pain (Mild 1-3) Stop: 12/26/19 10:41 Acetaminophen (Tylenol) 650 mg PO Q4HR PRN PRN Reason: Temperature Above 100 Stop: 12/26/19 10:41 Acetaminophen/Hydrocodone Bitart ([place] 5mg/325mg) 1 tab PO Q12H PRN PRN Reason: Pain (Moderate 4-6) Stop: 12/26/19 12:04 Al Hydrox/Mg Hydrox/Simethicone (Maalox) 30 ml PO Q4HR PRN PRN Reason: GI DISTRESS Stop: 12/26/19 10:41 Atorvastatin Calcium (Lipitor) 20 mg PO HS [facility]; Protocol Stop: 12/26/19 20:59 Last Admin: 10/28/19 20:56 Dose: 20 mg Divalproex Sodium (Depakote Dr) 250 mg PO Q12HR [facility]; Protocol Stop: 12/26/19 12:14 Last Admin: 10/29/19 08:10 Dose: 250 mg Docusate Sodium (Colace) 100 mg PO BID [facility] Stop: 12/26/19 16:59 Last Admin: 10/29/19 08:10 Dose: 100 mg Donepezil HCl (Aricept) 10 mg PO [facility] Stop: 12/26/19 20:59 Last Admin: 10/28/19 20:57 Dose: 10 mg Duloxetine HCl (Cymbalta) 30 mg PO DAILY [facility]; Protocol Stop: 12/27/19 08:59 Last Admin: 10/29/19 08:11 Dose: 30 mg Fenofibrate (Tricor) 134 mg PO DAILY [facility] Stop: 12/28/19 08:59 Last Admin: 10/29/19 09:41 Dose: 134 mg Ferrous Sulfate (Iron) 325 mg PO BID [facility] Stop: 12/26/19 16:59 Last Admin: 10/29/19 08:10 Dose: 325 mg Gabapentin (Neurontin) 300 mg PO TID [facility] Stop: 12/26/19 13:59 Last Admin: 10/29/19 08:11 Dose: 300 mg Glipizide (Glucotrol) 10 mg PO QPM [facility] Stop: 12/26/19 16:59 Last Admin: 10/28/19 16:54 Dose: 10 mg Insulin Human Lispro (Humalog Insulin Sliding Scale) 0 units SUBQ ACHS [facility]; Protocol Stop: 12/26/19 16:29 Last Admin: 10/29/19 11:30 Dose: Not Given Lisinopril (Zestril) 10 mg PO DAILY [facility] Stop: 12/27/19 08:59 Last Admin: 10/29/19 10:59 Dose: Not Given Metoprolol Tartrate (Lopressor) 25 mg PO BID [facility] Stop: 12/26/19 16:59 Last Admin: 10/29/19 11:00 Dose: Not Given Pantoprazole Sodium (Protonix) 40 mg PO QDAC [facility] Stop: 12/27/19 07:29 Last Admin: 10/29/19 06:56 Dose: 40 mg Tamsulosin HCl (Flomax) 0.4 mg PO HS [facility] Stop: 12/26/19 20:59 Last Admin: 10/28/19 20:58 Dose: 0.4 mg Warfarin Sodium (Coumadin Per Pharmacy) 1 ea [facility] PRN PRN; Protocol PRN Reason: COUMADIN PER RX Stop: 12/26/19 12:04 Zolpidem Tartrate (Ambien) 5 mg PO HS PRN PRN Reason: Insomnia Stop: 12/26/19 12:04 Last Admin: 10/27/19 21:18 Dose: 5 mg General: alert HEENT: NC/AT, PERRLA Neck: Supple Lungs: CTAB Abdomen: soft, non-tender, non-distended Extremities: contracture Neurological: alert Internal Medicine Assmt/Plan - Assessment Assessment: - Assessment Assessment: ASSESSMENT: Agitation, hypertension, type 2 diabetes, anemia, hyperlipidemia, major depressive disorder. - Plan Plan: - Plan Plan: PLAN: accucheck , diabetic diet. We will continue the patient's home medications. Fall precautions will be initiated. We will continue to follow this patient.
[2019-10-29] MEDS: Atorvastatin Calcium 10 MG TAB PO SCH (20:45)
--- NOTE | 2019-10-29 21:09 | Progress Notes ---
DATE: 10/29/2019 PSYCHIATRIC PROGRESS NOTE SUBJECTIVE: Staff was spoken to. The patient is interviewed. Mood is noted to be irritable. Affect is constricted. Coping skills at this time are noted to be very poor. The patient has been isolative and withdrawn. Insight and judgment are noted to be still impaired. Impulse control is noted to be limited. Coping skills are noted to be limited. The patient has been having difficult time. The patient is stating that it is too frustrating for him to be in here because it is too noisy. ASSESSMENT: The patient is still depressed. PLAN: To continue the patient with the current medications and encouraged the patient to verbalize the concerns rather than to act out. [facility]# [id number]
--- NOTE | 2019-10-29 21:44 | Consultation ---
DATE OF CONSULTATION: 10/29/2019 REFERRING PHYSICIAN: Michele Vogel MD and Mono Olguin M.D. TYPE OF CONSULTATION: Psychology. HISTORY OF PRESENT ILLNESS: The patient is a 59-year-old male. The patient is a resident of [facility]. The following is by record review and by the patient's self-report. The patient is being admitted due to increased depression. Upon interview, the patient states that he is not as depressed as he was a couple of days ago. The patient states that his sleep and appetite are okay. The staff at the patient's facility report that the patient had become more depressed and was having difficulty with ADLs, i.e., refusing to shower as well as isolating and getting easily agitated for at least 2-3 weeks. The patient reports that he has been taking Cymbalta for his depression. The patient denied any suicidal ideation, plan or intention at the time of this clinical interview. PAST MEDICAL HISTORY: Please see history and physical by Dr. Albarado. PAST PSYCHIATRIC HISTORY: The patient denies any prior psychiatric hospitalizations. The patient believes he is being treated by a psychiatrist at his facility, which would be Dr. Vogel, but was unable to provide the name of that provider. SUBSTANCE ABUSE HISTORY: The patient denied any use or abuse of alcohol, tobacco or illicit or recreational drug use. PSYCHOSOCIAL HISTORY: The patient is a resident of [facility]. 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 The patient stated that he thought this was unnecessary. The patient states that he does not have any family that is supportive or that he is in contact with. The patient states he is , with 2 children, but has no contact with them. He reports that his friend, Elpidio Garcia, is involved in his care. He wishes to return to [facility]. The patient states he is a Hindu. He reports no prior physical or sexual abuse or any current legal problems. MENTAL STATUS: The patient appears to be his stated age. The patient's attitude is cooperative. Eye contact is fair. Speech is spontaneous. Mood is mildly to moderately depressed. Affect is mood congruent. Thought process shows to be linear, illogical as well as goal-directed with a normal pattern of association. The patient admits that he has been isolating and reluctant to take a shower. The patient states he prefers to be by himself. The patient's behavior has been compliant with the care on the unit according to staff. The patient denied any suicidal ideation, plan or intention or any helplessness or hopelessness. He denied any hallucinations or delusions. The patient stated that he feels frustrated at times. Impulse control is limited. Concentration is fair. Immediate and short-term memory seemed to be grossly intact. Sensorium is alert and oriented x 3. The patient appears to be motivated for treatment. Insight is [id number]. Judgment is compromised. DIAGNOSTIC IMPRESSION AXIS I: Major depressive disorder, recurrent, moderate by history. AXIS II: None. AXIS III: Per Dr. Albarado. TREATMENT PLAN: The patient has been seen by Dr. Olguin for psychiatric evaluation and for the management of the patient's psychotropic medications. The patient is being continued on Cymbalta according to the attending psychiatrist. We will provide supportive psychotherapy to include cognitive behavioral therapy to assist the patient in reducing his depression. We will provide coping strategies for phase of life issues and adjustment to the patient's current circumstances, i.e., below the knee amputation. We will provide motivational enhancement for the patient to become compliant and stay compliant with all aspects of his care and treatment. We will provide de-escalation as well as conflict resolution for the patient to be able to problem solve and more appropriately interact with staff at his facility. We will follow up and continue this treatment if the patient remains admitted on the unit and participates willingly and is capable of benefiting from psychology services. Thank you, Dr. Vogel and Dr. Olguin for this consult and the opportunity to participate with you in this patient's care. JOB# [id number] MAKI
[2019-10-30] MEDS: Pantoprazole 40 mg EC Tab PO SCH ×2 (06:38→06:52)
[2019-10-30] MEDS: INSULIN LISPRO SLIDING SCALE 100 UNITS/ML UNIT SUBQ SCH ×4 (06:47→20:58)
[2019-10-30] MEDS: Fenofibrate, Micronized 134 mg Cap PO SCH (08:34)
[2019-10-30] MEDS: Multivitamin w/ Minerals Tab PO SCH (09:00)
[2019-10-30] MEDS: Ferrous Sulfate 325 MG TAB PO SCH ×2 (09:00→17:58)
--- NOTE | 2019-10-30 12:11 | Internal Medicine Prog Note ---
Internal Medicine Subjective - Subjective Patient seen and examined:: with staff, chart reviewed Patient is:: awake, verbal, interactive Per staff patient has:: no adverse event, no episodes of fall, tolerating meds Internal Medicine Objective - Results Recent Labs: Laboratory Last Values POC Glucose 157 MG/DL (70 - 105) H 10/30/19 11:32 - Physical Exam Vitals and I&O: Vital Signs Temp 97.6 F 10/30/19 06:11 Pulse 74 10/30/19 08:35 Resp 20 10/30/19 06:11 BP 104/78 10/30/19 08:35 Pulse Ox 96 10/30/19 06:11 Intake & Output 10/29/19 10/30/19 10/30/19 18:59 06:59 18:59 Intake Total 950 240 Balance 950 240 Intake: Oral 950 240 Other: # Voids 4 2 # Bowel Movements 0 Stool Characteristics Formed Formed Active Medications: Current Medications Acetaminophen (Tylenol) 650 mg PO Q4H PRN PRN Reason: Pain (Mild 1-3) Stop: 12/26/19 10:41 Acetaminophen (Tylenol) 650 mg PO Q4HR PRN PRN Reason: Temperature Above 100 Stop: 12/26/19 10:41 Acetaminophen/Hydrocodone Bitart ([place] 5mg/325mg) 1 tab PO Q12H PRN PRN Reason: Pain (Moderate 4-6) Stop: 12/26/19 12:04 Al Hydrox/Mg Hydrox/Simethicone (Maalox) 30 ml PO Q4HR PRN PRN Reason: GI DISTRESS Stop: 12/26/19 10:41 Atorvastatin Calcium (Lipitor) 20 mg PO HS [facility]; Protocol Stop: 12/26/19 20:59 Last Admin: 10/29/19 20:45 Dose: 20 mg Divalproex Sodium (Depakote Dr) 250 mg PO Q12HR [facility]; Protocol Stop: 12/26/19 12:14 Last Admin: 10/30/19 08:34 Dose: 250 mg Docusate Sodium (Colace) 100 mg PO BID [facility] Stop: 12/26/19 16:59 Last Admin: 10/30/19 08:32 Dose: 100 mg Donepezil HCl (Aricept) 10 mg PO HS [facility] Stop: 12/26/19 20:59 Last Admin: 10/29/19 20:45 Dose: 10 mg Duloxetine HCl (Cymbalta) 30 mg PO DAILY [facility]; Protocol Stop: 12/27/19 08:59 Last Admin: 10/30/19 08:34 Dose: 30 mg Fenofibrate (Tricor) 134 mg PO DAILY [facility] Stop: 12/28/19 08:59 Last Admin: 10/30/19 08:34 Dose: 134 mg Ferrous Sulfate (Iron) 325 mg PO BID [facility] Stop: 12/26/19 16:59 Last Admin: 10/29/19 17:57 Dose: 325 mg Gabapentin (Neurontin) 300 mg PO TID [facility] Stop: 12/26/19 13:59 Last Admin: 10/30/19 08:33 Dose: 300 mg Glipizide (Glucotrol) 10 mg PO QPM [facility] Stop: 12/26/19 16:59 Last Admin: 10/29/19 17:58 Dose: Not Given Insulin Human Lispro (Humalog Insulin Sliding Scale) 0 units SUBQ [facility]; Protocol Stop: 12/26/19 16:29 Last Admin: 10/30/19 06:47 Dose: Not Given Lisinopril (Zestril) 10 mg PO DAILY [facility] Stop: 12/27/19 08:59 Last Admin: 10/30/19 08:34 Dose: Not Given Metoprolol Tartrate (Lopressor) 25 mg PO BID [facility] Stop: 12/26/19 16:59 Last Admin: 10/30/19 08:35 Dose: Not Given Pantoprazole Sodium (Protonix) 40 mg PO QDAC [facility] Stop: 12/27/19 07:29 Last Admin: 10/30/19 06:52 Dose: Not Given Tamsulosin HCl (Flomax) 0.4 mg PO HS [facility] Stop: 12/26/19 20:59 Last Admin: 10/29/19 20:45 Dose: 0.4 mg Warfarin Sodium (Coumadin Per Pharmacy) 1 ea [facility] PRN PRN; Protocol PRN Reason: COUMADIN PER RX Stop: 12/26/19 12:04 Zolpidem Tartrate (Ambien) 5 mg PO HS PRN PRN Reason: Insomnia Stop: 12/26/19 12:04 Last Admin: 10/29/19 20:45 Dose: 5 mg General: alert HEENT: NC/AT, PERRLA Neck: Supple Lungs: CTAB Abdomen: soft, non-tender, non-distended Extremities: contracture Neurological: alert Internal Medicine Assmt/Plan - Assessment Assessment: - Assessment Assessment: ASSESSMENT: Agitation, hypertension, type 2 diabetes, anemia, hyperlipidemia, major depressive disorder. - Plan Plan: - Plan Plan: PLAN: accucheck , diabetic diet. We will continue the patient's home medications. Fall precautions will be initiated. We will continue to follow this patient.
[2019-10-30] MEDS: Atorvastatin Calcium 10 MG TAB PO SCH (20:21)
--- NOTE | 2019-10-31 02:22 | Progress Notes ---
DATE: 10/30/2019 PSYCHIATRIC PROGRESS NOTE SUBJECTIVE: Staff was spoken to. The patient is interviewed. Mood is noted to be irritable. Affect is constricted. Coping skills are noted to be still poor. Insight and judgment are noted to be still impaired. Impulse control is noted to be limited. No side effects to the medications are noted. The patient is however, stating that he has been having these depressive symptoms since he ended up with the amputation. Coping skills at this time are noted to be very poor. ASSESSMENT: The patient is still depressed. PLAN: To continue the patient with the supportive therapy and followup. JOB# [id number]
[2019-10-31] MEDS: Pantoprazole 40 mg EC Tab PO SCH (06:52)
[2019-10-31] MEDS: INSULIN LISPRO SLIDING SCALE 100 UNITS/ML UNIT SUBQ SCH ×2 (06:53→11:37)
[2019-10-31] MEDS: Fenofibrate, Micronized 134 mg Cap PO SCH (08:28)
[2019-10-31] MEDS: Multivitamin w/ Minerals Tab PO SCH (08:29)
[2019-10-31] MEDS: Ferrous Sulfate 325 MG TAB PO SCH ×2 (08:29→16:40)
--- NOTE | 2019-10-31 13:34 | Internal Medicine Prog Note ---
Internal Medicine Subjective - Subjective Patient seen and examined:: with staff, chart reviewed Patient is:: awake, verbal, interactive Per staff patient has:: no adverse event, no episodes of fall, tolerating meds Internal Medicine Objective - Results Recent Labs: Laboratory Last Values POC Glucose 130 MG/DL (70 - 105) H 10/31/19 11:35 - Physical Exam Vitals and I&O: Vital Signs Temp 98.2 F 10/31/19 06:23 Pulse 61 10/31/19 08:30 Resp 20 10/31/19 06:23 BP 125/70 10/31/19 08:30 Pulse Ox 95 10/31/19 06:23 Intake & Output 10/30/19 10/31/19 10/31/19 18:59 06:59 18:59 Intake Total 1200 120 Output Total 600 Balance 600 120 Intake: Oral 1200 120 Output: Urine 600 Other: # Voids 3 # Bowel Movements 1 0 Stool Characteristics Formed Formed Active Medications: Current Medications Acetaminophen (Tylenol) 650 mg PO Q4H PRN PRN Reason: Pain (Mild 1-3) Stop: 12/26/19 10:41 Acetaminophen (Tylenol) 650 mg PO Q4HR PRN PRN Reason: Temperature Above 100 Stop: 12/26/19 10:41 Acetaminophen/Hydrocodone Bitart ([place] 5mg/325mg) 1 tab PO Q12H PRN PRN Reason: Pain (Moderate 4-6) Stop: 12/26/19 12:04 Al Hydrox/Mg Hydrox/Simethicone (Maalox) 30 ml PO Q4HR PRN PRN Reason: GI DISTRESS Stop: 12/26/19 10:41 Atorvastatin Calcium (Lipitor) 20 mg PO HS [facility]; Protocol Stop: 12/26/19 20:59 Last Admin: 10/30/19 20:21 Dose: 20 mg Divalproex Sodium (Depakote Dr) 250 mg PO Q12HR [facility]; Protocol Stop: 12/26/19 12:14 Last Admin: 10/31/19 08:29 Dose: 250 mg Docusate Sodium (Colace) 100 mg PO BID [facility] Stop: 12/26/19 16:59 Last Admin: 10/31/19 08:28 Dose: 100 mg Donepezil HCl (Aricept) 10 mg PO HS [facility] Stop: 12/26/19 20:59 Last Admin: 10/30/19 20:20 Dose: 10 mg Duloxetine HCl (Cymbalta) 30 mg PO DAILY [facility]; Protocol Stop: 12/27/19 08:59 Last Admin: 10/31/19 08:29 Dose: 30 mg Fenofibrate (Tricor) 134 mg PO DAILY [facility] Stop: 12/28/19 08:59 Last Admin: 10/31/19 08:28 Dose: 134 mg Ferrous Sulfate (Iron) 325 mg PO BID [facility] Stop: 12/26/19 16:59 Last Admin: 10/31/19 08:29 Dose: 325 mg Gabapentin (Neurontin) 300 mg PO TID [facility] Stop: 12/26/19 13:59 Last Admin: 10/31/19 08:29 Dose: 300 mg Glipizide (Glucotrol) 10 mg PO QPM [facility] Stop: 12/26/19 16:59 Last Admin: 10/30/19 17:58 Dose: 10 mg Insulin Human Lispro (Humalog Insulin Sliding Scale) 0 units SUBQ QDAC [facility]; Protocol Stop: 12/31/19 07:29 Lisinopril (Zestril) 10 mg PO DAILY [facility] Stop: 12/27/19 08:59 Last Admin: 10/31/19 08:30 Dose: 10 mg Metoprolol Tartrate (Lopressor) 25 mg PO BID [facility] Stop: 12/26/19 16:59 Last Admin: 10/31/19 08:29 Dose: 25 mg Pantoprazole Sodium (Protonix) 40 mg PO QDAC [facility] Stop: 12/27/19 07:29 Last Admin: 10/31/19 06:52 Dose: 40 mg Tamsulosin HCl (Flomax) 0.4 mg PO HS [facility] Stop: 12/26/19 20:59 Last Admin: 10/30/19 20:20 Dose: 0.4 mg Warfarin Sodium (Coumadin Per Pharmacy) 1 ea [facility] PRN PRN; Protocol PRN Reason: COUMADIN PER RX Stop: 12/26/19 12:04 Zolpidem Tartrate (Ambien) 5 mg PO HS PRN PRN Reason: Insomnia Stop: 12/26/19 12:04 Last Admin: 10/30/19 20:19 Dose: 5 mg General: alert HEENT: NC/AT, PERRLA Neck: Supple Lungs: CTAB Abdomen: soft, non-tender, non-distended Extremities: contracture Neurological: alert Internal Medicine Assmt/Plan - Assessment Assessment: - Assessment Assessment: ASSESSMENT: Agitation, hypertension, type 2 diabetes, anemia, hyperlipidemia, major depressive disorder.left shoulder wound - Plan Plan: - Plan Plan: PLAN: accucheck , diabetic diet. We will continue the patient's home medications. Fall precautions will be initiated. We will continue to follow this patient. cont w wound care, surgery follow up on discharge Nutritional Asmnt/Malnutr-PDOC - Dietary Evaluation Malnutrition Findings (Please click <Entered> for more info): Nutritional Asmnt/Malnutrition Start: 10/30/19 14: 09 Text: Status: Complete Freq: Protocol: Document 10/30/19 14:09 JENIFER (Rec: 10/30/19 14:14 JENIFER [id number]) Nutritional Asmnt/Malnutrition Patient General Information Nutritional Screening Moderate Risk Diagnosis Psychosis Pertinent Medical Hx/Surgical Hx HTN, DVT, DMT2, Anemia, Hyperlipidemia, Depression, RT leg BKA Subjective Information Pt is a 59-year-old male admitted on 10/27 d/t depression and agitation. Pt is eating an estimated 65% of meals since admit date (x3 days) Per Meal/Nutrition Activity Record, pt refused dinner on admit date. Dietary is currently providing an estimated 1800 kcals and 108 gm Pro, per Pt PO intake this is providing an estimated 1170 kcals and 70gm Pro to meet 60 % kcal and 88% Pro needs. Will continue to monitor PO intake , nurse to encourage improved PO intake. Will reassess pt intake in 2-3 days and provide nutritional supplement as necessary. Will provide any food-drug education needed on reassessment in 2-3 days when pt is in room, available to talk in private about his coumadin regimen. Spoke with pt concerning his [facility] diet and why he was not receiving juice on his breakfast tray as he mentioned he like orange juice. Pt did not seem to fully understand BG levels in relation to juice consumption, but accepted he was not receiving juice. Anthropometrics HT: 6 FT WT: 203 LB (92.27 kg) ABW: 177 LB (80.34 kg) BMI: 27.53 (Overweight) GI/ Skin Integrity GI: WNL, Soft, Flat, Non- tender BM: 0 noted since admit date ( x3 days) I/O: 1190/Not Noted Skin: WNL, Intact, Dryness Jorge: 17 Diet Order: CCHO, 2gmNa Estimated Energy Needs: ( Geriatric, ABW) 9228-7261 kcals (25-30 kcals/ kg) 80-100g Pro (1.0-1.2 g/kg) 7490-4110 ml (25-30 ml/kg) Current Diet Order/ Nutrition Support CCHO, 2gmNa Pertinent Medications Maalox (PRN), Lipitor, Colace, Tricor, Ferrous Sulfate, Glucotrol, (PRN), INS-SS, MOM (PRN), Glucophage, Protonix, Flomax, Coumadin Pertinent Labs POC Glucose (last 24 hours): 141, 102, 103, 157 10/29: Pro time 14.8, INR 1.5 10/28: Pro Time 11.6, INR 1.2 10/26: Glucose 198, BUN/Cr 26/1 .45, GFR 53, Tags 212, Chol 227, HDL 36, LDL 146 Nutritional Hx/Data Height 1.83 m Height (Calculated Centimeters) 182.9 Current Weight (lbs) 92.079 kg Weight (Calculated Kilograms) 92.1 Weight (Calculated Grams) 64512.3 [employer] Body Weight 168 LB (76.36 kg) % [employer] Body Weight 120 Body Mass Index (BMI) 27.5 Weight Status Overweight GI Symptoms Last BM 0 noted since admit date (x3 days) Skin Integrity/Comment: Skin: WNL, Intact, Dryness Jorge: 17 Estimated Nutritional Goals BEE in Kcals: Adj wt of IBW Calories/Kcals/Kg 25-30 Kcals Calculated 2683-1198 Protein: Adj wt of IBW Protein g/k.0-1.2 Protein Calculated 80-100 Fluid: ml 5077-5801 ml (25-30 ml/kg) Nutritional Problem 1. Problem Problem Impaired nutrient utilization Etiology r/t endocrine dysfunction Signs/Symptoms: aeb labs (10/26) Glucose 198, POC Glucose (last 24 hours): 141, 102, 103, 157. Malnutrition Related to Morbid Obesity Malnutrition related to morbid obesity No Intervention/Recommendation Comments 1.Continue CCHO, 2gmNa diet as tolerated. 2.Continue antihyperglycemic medications for glucose control per MD order. 3. Nurse to encourage improved PO intake. Expected Outcomes/Goals Expected Outcomes/Goals 1.PO intake to continue to meet >75% of estimated nutritional needs. 2.Monitor PO intake improvement, wt, nutrition related lab to trend WNL, and skin integrity to trend WNL. 3.F/U as high risk in 2-3 days , 11/01-11/02.
[2019-10-31] MEDS: Silver Antimicrobial Wound Gel 0.25 oz Tube TP SCH (16:39)
--- NOTE | 2019-10-31 19:58 | Progress Notes ---
DATE: 10/31/2019 PSYCHOLOGY PROGRESS NOTE SUBJECTIVE: The patient is seen in his room. Case is discussed with staff. The patient is somnolent, but arousable by touch, but not verbally. The patient presents as irritated this visit. The patient states that he does not need any treatment and needs to be discharged. The patient continues to have depressive symptoms. The patient had acknowledged on an earlier visit that his depression was directly related to his amputation. OBJECTIVE: Mood is depressed. Affect is mood congruent. Thought process shows to be depressogenic. The patient denied any hallucinations or delusions. The patient's behavior is somewhat withdrawn and isolative. Staff reports the patient is compliant with his medication. ASSESSMENT: The patient's depression persists. PLAN: The patient had acknowledged that his depression was directly related to his amputation and agreed to participate in supportive therapy and/or psychotherapeutic interventions to help him adjust and to cope with this sudden and radical change in his medical condition and quality of life. The patient stated that he would participate in a followup visit. We provided remotivation for the patient to continue with his treatment and to participate in the milieu therapy. We provided coping mechanisms for loss and sudden change in lifestyle as well. We will follow up in 2 days to continue the present treatment if the patient remains admitted on the unit. JOB# [id number] MAKI
[2019-10-31] MEDS: Atorvastatin Calcium 10 MG TAB PO SCH (20:25)
--- NOTE | 2019-11-01 02:03 | Progress Notes ---
DATE: 10/31/2019 PSYCHIATRIC PROGRESS NOTE SUBJECTIVE: Staff was spoken to. The patient is interviewed. Mood is noted to be irritable. Affect is constricted. The patient is getting easily frustrated. The patient is stating that he has been in here for a while and there is no reason for him to be in here and he states that people in here are making him to be too upset and the patient has been having difficult time to cope with the stress. The patient is currently on 30 mg of Cymbalta and has been able to tolerate the medication. No side effects to the medications are noted. In view of his frustration and depression, it is decided to increase the dose of the Cymbalta to 60 mg and I encouraged the patient to verbalize the concerns rather than to act out. ASSESSMENT: The patient is still depressed. PLAN: To continue the patient with the supportive therapy. I encouraged the patient to verbalize the concerns rather than to act out. JOB# [id number]
[2019-11-01] MEDS: Pantoprazole 40 mg EC Tab PO SCH (06:33)
[2019-11-01] MEDS: INSULIN LISPRO SLIDING SCALE 100 UNITS/ML UNIT SUBQ SCH (06:33)
--- NOTE | 2019-11-01 09:13 | Progress Notes ---
DATE: 11/01/2019 PSYCHIATRIC PROGRESS NOTE SUBJECTIVE: Staff was spoken to. The patient is interviewed. Mood is noted to be depressed. Affect is constricted. Coping skills are noted to be poor. The patient is isolative and withdrawn. The patient is stating that he has been having difficult time to deal with the noise and other patients. The patient is currently on Depakote and duloxetine that was increased to 60 mg yesterday. The patient has been able to tolerate. No major side effects to the medications are noted. The patient, however, is feeling frustrated at this time. ASSESSMENT: The patient is still depressed. PLAN: To continue the patient with the supportive therapy and followup. JOB# [id number]
[2019-11-01] MEDS: Ferrous Sulfate 325 MG TAB PO SCH ×2 (09:51→17:23)
[2019-11-01] MEDS: Multivitamin w/ Minerals Tab PO SCH (09:53)
[2019-11-01] MEDS: Fenofibrate, Micronized 134 mg Cap PO SCH (09:54)
--- NOTE | 2019-11-01 12:47 | Internal Medicine Prog Note ---
Internal Medicine Subjective - Subjective Patient seen and examined:: with staff, chart reviewed Patient is:: awake, verbal, interactive Per staff patient has:: no adverse event, no episodes of fall, tolerating meds Internal Medicine Objective - Results Recent Labs: Laboratory Last Values POC Glucose 79 MG/DL (70 - 105) 11/01/19 06:21 - Physical Exam Vitals and I&O: Vital Signs Temp 97.9 F 10/31/19 20:24 Pulse 68 11/01/19 10:02 Resp 17 11/01/19 08:00 BP 101/77 11/01/19 10:02 Pulse Ox 98 10/31/19 20:24 Intake & Output 10/31/19 11/01/19 11/01/19 18:59 06:59 18:59 Intake Total 1200 120 Output Total 800 Balance 400 120 Intake: Oral 1200 120 Output: Urine 800 Other: # Voids 1 # Bowel Movements 0 0 Stool Characteristics Formed Formed Formed Active Medications: Current Medications Acetaminophen (Tylenol) 650 mg PO Q4H PRN PRN Reason: Pain (Mild 1-3) Stop: 12/26/19 10:41 Acetaminophen (Tylenol) 650 mg PO Q4HR PRN PRN Reason: Temperature Above 100 Stop: 12/26/19 10:41 Acetaminophen/Hydrocodone Bitart ([place] 5mg/325mg) 1 tab PO Q12H PRN PRN Reason: Pain (Moderate 4-6) Stop: 12/26/19 12:04 Al Hydrox/Mg Hydrox/Simethicone (Maalox) 30 ml PO Q4HR PRN PRN Reason: GI DISTRESS Stop: 12/26/19 10:41 Atorvastatin Calcium (Lipitor) 20 mg PO HS [facility]; Protocol Stop: 12/26/19 20:59 Last Admin: 10/31/19 20:25 Dose: 20 mg Divalproex Sodium (Depakote Dr) 250 mg PO Q12HR [facility]; Protocol Stop: 12/26/19 12:14 Last Admin: 11/01/19 09:53 Dose: 250 mg Docusate Sodium (Colace) 100 mg PO BID [facility] Stop: 12/26/19 16:59 Last Admin: 11/01/19 09:51 Dose: 100 mg Donepezil HCl (Aricept) 10 mg PO HS [facility] Stop: 12/26/19 20:59 Last Admin: 10/31/19 20:26 Dose: 10 mg Duloxetine HCl (Cymbalta) 60 mg PO DAILY [facility]; Protocol Stop: 12/31/19 08:59 Last Admin: 11/01/19 09:52 Dose: 60 mg Fenofibrate (Tricor) 134 mg PO DAILY [facility] Stop: 12/28/19 08:59 Last Admin: 11/01/19 09:54 Dose: 134 mg Ferrous Sulfate (Iron) 325 mg PO BID [facility] Stop: 12/26/19 16:59 Last Admin: 11/01/19 09:51 Dose: 325 mg Gabapentin (Neurontin) 300 mg PO TID [facility] Stop: 12/26/19 13:59 Last Admin: 11/01/19 09:53 Dose: 300 mg Glipizide (Glucotrol) 10 mg PO QPM [facility] Stop: 12/26/19 16:59 Last Admin: 10/31/19 16:40 Dose: 10 mg Insulin Human Lispro (Humalog Insulin Sliding Scale) 0 units SUBQ QDAC [facility]; Protocol Stop: 12/31/19 07:29 Last Admin: 11/01/19 06:33 Dose: Not Given Lisinopril (Zestril) 10 mg PO DAILY [facility] Stop: 12/27/19 08:59 Last Admin: 11/01/19 10:01 Dose: 10 mg Metoprolol Tartrate (Lopressor) 25 mg PO BID [facility] Stop: 12/26/19 16:59 Last Admin: 11/01/19 10:02 Dose: 25 mg Pantoprazole Sodium (Protonix) 40 mg PO QDAC [facility] Stop: 12/27/19 07:29 Last Admin: 11/01/19 06:33 Dose: 40 mg Tamsulosin HCl (Flomax) 0.4 mg PO HS [facility] Stop: 12/26/19 20:59 Last Admin: 10/31/19 20:26 Dose: 0.4 mg Warfarin Sodium (Coumadin Per Pharmacy) 1 ea MC PRN PRN; Protocol PRN Reason: COUMADIN PER RX Stop: 12/26/19 12:04 Wound Care/Dressing Products (Silvasorb) 1 appl TP DAILY [facility] Stop: 12/30/19 16:59 Last Admin: 10/31/19 16:39 Dose: 1 appl Zolpidem Tartrate (Ambien) 5 mg PO HS PRN PRN Reason: Insomnia Stop: 12/26/19 12:04 Last Admin: 10/30/19 20:19 Dose: 5 mg General: alert HEENT: NC/AT, PERRLA Neck: Supple Lungs: CTAB Abdomen: soft, non-tender, non-distended Extremities: contracture Neurological: alert Internal Medicine Assmt/Plan - Assessment Assessment: - Assessment Assessment: ASSESSMENT: Agitation, hypertension, type 2 diabetes, anemia, hyperlipidemia, major depressive disorder.left shoulder wound - Plan Plan: - Plan Plan: PLAN: accucheck , diabetic diet. We will continue the patient's home medications. Fall precautions will be initiated. We will continue to follow this patient. cont w wound care, surgery follow up on discharge Nutritional Asmnt/Malnutr-PDOC - Dietary Evaluation Malnutrition Findings (Please click <Entered> for more info): Nutritional Asmnt/Malnutrition Start: 10/30/19 14: 09 Text: Status: Complete Freq: Protocol: Document 10/30/19 14:09 JENIFER (Rec: 10/30/19 14:14 JENIFER [email or web address]) Nutritional Asmnt/Malnutrition Patient General Information Nutritional Screening Moderate Risk Diagnosis Psychosis Pertinent Medical Hx/Surgical Hx HTN, DVT, DMT2, Anemia, Hyperlipidemia, Depression, RT leg BKA Subjective Information Pt is a 59-year-old male admitted on 10/27 d/t depression and agitation. Pt is eating an estimated 65% of meals since admit date (x3 days) Per Meal/Nutrition Activity Record, pt refused dinner on admit date. Dietary is currently providing an estimated 1800 kcals and 108 gm Pro, per Pt PO intake this is providing an estimated 1170 kcals and 70gm Pro to meet 60 % kcal and 88% Pro needs. Will continue to monitor PO intake , nurse to encourage improved PO intake. Will reassess pt intake in 2-3 days and provide nutritional supplement as necessary. Will provide any food-drug education needed on reassessment in 2-3 days when pt is in room, available to talk in private about his coumadin regimen. Spoke with pt concerning his CCHO diet and why he was not receiving juice on his breakfast tray as he mentioned he like orange juice. Pt did not seem to fully understand BG levels in relation to juice consumption, but accepted he was not receiving juice. Anthropometrics HT: 6 FT WT: 203 LB (92.27 kg) ABW: 177 LB (80.34 kg) BMI: 27.53 (Overweight) GI/ Skin Integrity GI: WNL, Soft, Flat, Non- tender BM: 0 noted since admit date ( x3 days) I/O: 1190/Not Noted Skin: WNL, Intact, Dryness Jorge: 17 Diet Order: CCHO, 2gmNa Estimated Energy Needs: ( Geriatric, ABW) 8005-0120 kcals (25-30 kcals/ kg) 80-100g Pro (1.0-1.2 g/kg) 2583-9127 ml (25-30 ml/kg) Current Diet Order/ Nutrition Support CCHO, 2gmNa Pertinent Medications Maalox (PRN), Lipitor, Colace, Tricor, Ferrous Sulfate, Glucotrol, (PRN), INS-SS, MOM (PRN), Glucophage, Protonix, Flomax, Coumadin Pertinent Labs POC Glucose (last 24 hours): 141, 102, 103, 157 10/29: Pro time 14.8, INR 1.5 10/28: Pro Time 11.6, INR 1.2 10/26: Glucose 198, BUN/Cr 26/1 .45, GFR 53, Tags 212, Chol 227, HDL 36, LDL 146 Nutritional Hx/Data Height 1.83 m Height (Calculated Centimeters) 182.9 Current Weight (lbs) 92.079 kg Weight (Calculated Kilograms) 92.1 Weight (Calculated Grams) 66268.3 [place] Body Weight 168 LB (76.36 kg) % [place] Body Weight 120 Body Mass Index (BMI) 27.5 Weight Status Overweight GI Symptoms Last BM 0 noted since admit date (x3 days) Skin Integrity/Comment: Skin: WNL, Intact, Dryness Jorge: 17 Estimated Nutritional Goals BEE in Kcals: Adj wt of IBW Calories/Kcals/Kg 25-30 Kcals Calculated 8818-4539 Protein: Adj wt of IBW Protein g/k.0-1.2 Protein Calculated 80-100 Fluid: ml 1190-5489 ml (25-30 ml/kg) Nutritional Problem 1. Problem Problem Impaired nutrient utilization Etiology r/t endocrine dysfunction Signs/Symptoms: aeb labs (10/26) Glucose 198, POC Glucose (last 24 hours): 141, 102, 103, 157. Malnutrition Related to Morbid Obesity Malnutrition related to morbid obesity No Intervention/Recommendation Comments 1.Continue CCHO, 2gmNa diet as tolerated. 2.Continue antihyperglycemic medications for glucose control per MD order. 3. Nurse to encourage improved PO intake. Expected Outcomes/Goals Expected Outcomes/Goals 1.PO intake to continue to meet >75% of estimated nutritional needs. 2.Monitor PO intake improvement, wt, nutrition related lab to trend WNL, and skin integrity to trend WNL. 3.F/U as high risk in 2-3 days , 11/01-11/02.
[2019-11-01] MEDS: Silver Antimicrobial Wound Gel 0.25 oz Tube TP SCH (18:58)
[2019-11-01] MEDS: Atorvastatin Calcium 10 MG TAB PO SCH (20:19)
[2019-11-02] MEDS: Pantoprazole 40 mg EC Tab PO SCH (06:40)
[2019-11-02] MEDS: INSULIN LISPRO SLIDING SCALE 100 UNITS/ML UNIT SUBQ SCH (06:41)
[2019-11-02] MEDS: Fenofibrate, Micronized 134 mg Cap PO SCH (08:26)
[2019-11-02] MEDS: Multivitamin w/ Minerals Tab PO SCH (08:26)
[2019-11-02] MEDS: Ferrous Sulfate 325 MG TAB PO SCH (08:26)
[2019-11-02] MEDS: Silver Antimicrobial Wound Gel 0.25 oz Tube TP SCH (08:32)
--- NOTE | 2019-11-02 11:13 | Progress Notes ---
DATE: 11/02/2019 PSYCHIATRIC PROGRESS NOTE SUBJECTIVE: Staff was spoken to. The patient is interviewed. Mood is noted to be irritable. Affect is constricted. Coping skills are noted to be still poor. The patient is isolative and withdrawn. ____ stress. The patient is currently on the valproic acid and duloxetine and has been able to tolerate the medications. The patient is stating that he is not getting much out of the groups and would rather in [facility]. ASSESSMENT: The patient is stabilizing. PLAN: To continue the patient with the supportive therapy and work with the therapeutic case manager with regards to placement of this patient back at [facility]. JOB# [id number]
--- NOTE | 2019-11-02 13:06 | Internal Medicine Prog Note ---
Internal Medicine Subjective - Subjective Patient seen and examined:: with staff, chart reviewed Patient is:: awake, verbal, interactive Per staff patient has:: no adverse event, no episodes of fall, tolerating meds Internal Medicine Objective - Results Recent Labs: Laboratory Last Values POC Glucose 61 MG/DL (70 - 105) L 11/02/19 06:09 - Physical Exam Vitals and I&O: Vital Signs Temp 97.1 F 11/02/19 06:36 Pulse 84 11/02/19 08:27 Resp 17 11/02/19 07:37 BP 110/68 11/02/19 08:27 Pulse Ox 97 11/02/19 06:36 Intake & Output 11/01/19 11/02/19 11/02/19 18:59 06:59 18:59 Intake Total 120 Balance 120 Intake: Oral 120 Other: # Voids 3 1 # Bowel Movements 1 0 Stool Characteristics Formed Formed Formed Active Medications: Current Medications Acetaminophen (Tylenol) 650 mg PO Q4H PRN PRN Reason: Pain (Mild 1-3) Stop: 12/26/19 10:41 Acetaminophen (Tylenol) 650 mg PO Q4HR PRN PRN Reason: Temperature Above 100 Stop: 12/26/19 10:41 Acetaminophen/Hydrocodone Bitart ([place] 5mg/325mg) 1 tab PO Q12H PRN PRN Reason: Pain (Moderate 4-6) Stop: 12/26/19 12:04 Al Hydrox/Mg Hydrox/Simethicone (Maalox) 30 ml PO Q4HR PRN PRN Reason: GI DISTRESS Stop: 12/26/19 10:41 Atorvastatin Calcium (Lipitor) 20 mg PO HS [facility]; Protocol Stop: 12/26/19 20:59 Last Admin: 11/01/19 20:19 Dose: 20 mg Divalproex Sodium (Depakote Dr) 250 mg PO Q12HR [facility]; Protocol Stop: 12/26/19 12:14 Last Admin: 11/02/19 08:26 Dose: 250 mg Docusate Sodium (Colace) 100 mg PO BID [facility] Stop: 12/26/19 16:59 Last Admin: 11/02/19 08:25 Dose: 100 mg Donepezil HCl (Aricept) 10 mg PO HS [facility] Stop: 12/26/19 20:59 Last Admin: 11/01/19 20:21 Dose: 10 mg Duloxetine HCl (Cymbalta) 60 mg PO DAILY [facility]; Protocol Stop: 12/31/19 08:59 Last Admin: 11/02/19 08:26 Dose: 60 mg Fenofibrate (Tricor) 134 mg PO DAILY [facility] Stop: 12/28/19 08:59 Last Admin: 11/02/19 08:26 Dose: 134 mg Ferrous Sulfate (Iron) 325 mg PO BID [facility] Stop: 12/26/19 16:59 Last Admin: 11/02/19 08:26 Dose: 325 mg Gabapentin (Neurontin) 300 mg PO TID [facility] Stop: 12/26/19 13:59 Last Admin: 11/02/19 08:25 Dose: 300 mg Glipizide (Glucotrol) 10 mg PO QPM [facility] Stop: 12/26/19 16:59 Last Admin: 11/01/19 17:24 Dose: 10 mg Insulin Human Lispro (Humalog Insulin Sliding Scale) 0 units SUBQ QDAC [facility]; Protocol Stop: 12/31/19 07:29 Last Admin: 11/02/19 06:41 Dose: Not Given Lisinopril (Zestril) 10 mg PO DAILY [facility] Stop: 12/27/19 08:59 Last Admin: 11/02/19 08:27 Dose: 10 mg Metoprolol Tartrate (Lopressor) 25 mg PO BID [facility] Stop: 12/26/19 16:59 Last Admin: 11/02/19 08:27 Dose: 25 mg Pantoprazole Sodium (Protonix) 40 mg PO QDAC [facility] Stop: 12/27/19 07:29 Last Admin: 11/02/19 06:40 Dose: 40 mg Tamsulosin HCl (Flomax) 0.4 mg PO HS [facility] Stop: 12/26/19 20:59 Last Admin: 11/01/19 20:21 Dose: 0.4 mg Warfarin Sodium (Coumadin Per Pharmacy) 1 ea [facility] PRN PRN; Protocol PRN Reason: COUMADIN PER RX Stop: 12/26/19 12:04 Wound Care/Dressing Products (Silvasorb) 1 appl TP DAILY [facility] Stop: 12/30/19 16:59 Last Admin: 11/02/19 08:32 Dose: 1 appl Zolpidem Tartrate (Ambien) 5 mg PO HS PRN PRN Reason: Insomnia Stop: 12/26/19 12:04 Last Admin: 10/30/19 20:19 Dose: 5 mg General: alert HEENT: NC/AT, PERRLA Neck: Supple Lungs: CTAB Abdomen: soft, non-tender, non-distended Extremities: contracture Neurological: alert Internal Medicine Assmt/Plan - Assessment Assessment: - Assessment Assessment: ASSESSMENT: Agitation, hypertension, type 2 diabetes, anemia, hyperlipidemia, major depressive disorder.left shoulder wound - Plan Plan: - Plan Plan: PLAN: accucheck , diabetic diet. We will continue the patient's home medications. Fall precautions will be initiated. We will continue to follow this patient. cont w wound care, surgery follow up on discharge Nutritional Asmnt/Malnutr-PDOC - Dietary Evaluation Malnutrition Findings (Please click <Entered> for more info): Nutritional Asmnt/Malnutrition Start: 10/30/19 14: 09 Text: Status: Complete Freq: Protocol: Document 10/30/19 14:09 JENIFER (Rec: 10/30/19 14:14 JENIFER [email or web address]) Nutritional Asmnt/Malnutrition Patient General Information Nutritional Screening Moderate Risk Diagnosis Psychosis Pertinent Medical Hx/Surgical Hx HTN, DVT, DMT2, Anemia, Hyperlipidemia, Depression, RT leg BKA Subjective Information Pt is a 59-year-old male admitted on 10/27 d/t depression and agitation. Pt is eating an estimated 65% of meals since admit date (x3 days) Per Meal/Nutrition Activity Record, pt refused dinner on admit date. Dietary is currently providing an estimated 1800 kcals and 108 gm Pro, per Pt PO intake this is providing an estimated 1170 kcals and 70gm Pro to meet 60 % kcal and 88% Pro needs. Will continue to monitor PO intake , nurse to encourage improved PO intake. Will reassess pt intake in 2-3 days and provide nutritional supplement as necessary. Will provide any food-drug education needed on reassessment in 2-3 days when pt is in room, available to talk in private about his coumadin regimen. Spoke with pt concerning his CCHO diet and why he was not receiving juice on his breakfast tray as he mentioned he like orange juice. Pt did not seem to fully understand BG levels in relation to juice consumption, but accepted he was not receiving juice. Anthropometrics HT: 6 FT WT: 203 LB (92.27 kg) ABW: 177 LB (80.34 kg) BMI: 27.53 (Overweight) GI/ Skin Integrity GI: WNL, Soft, Flat, Non- tender BM: 0 noted since admit date ( x3 days) I/O: 1190/Not Noted Skin: WNL, Intact, Dryness Jorge: 17 Diet Order: CCHO, 2gmNa Estimated Energy Needs: ( Geriatric, ABW) 2405-6867 kcals (25-30 kcals/ kg) 80-100g Pro (1.0-1.2 g/kg) 5249-0400 ml (25-30 ml/kg) Current Diet Order/ Nutrition Support CCHO, 2gmNa Pertinent Medications Maalox (PRN), Lipitor, Colace, Tricor, Ferrous Sulfate, Glucotrol, (PRN), INS-SS, MOM (PRN), Glucophage, Protonix, Flomax, Coumadin Pertinent Labs POC Glucose (last 24 hours): 141, 102, 103, 157 10/29: Pro time 14.8, INR 1.5 10/28: Pro Time 11.6, INR 1.2 10/26: Glucose 198, BUN/Cr 26/1 .45, GFR 53, Tags 212, Chol 227, HDL 36, LDL 146 Nutritional Hx/Data Height 1.83 m Height (Calculated Centimeters) 182.9 Current Weight (lbs) 92.079 kg Weight (Calculated Kilograms) 92.1 Weight (Calculated Grams) 96958.3 [place] Body Weight 168 LB (76.36 kg) % [place] Body Weight 120 Body Mass Index (BMI) 27.5 Weight Status Overweight GI Symptoms Last BM 0 noted since admit date (x3 days) Skin Integrity/Comment: Skin: WNL, Intact, Dryness Jorge: 17 Estimated Nutritional Goals BEE in Kcals: Adj wt of IBW Calories/Kcals/Kg 25-30 Kcals Calculated 2408-1436 Protein: Adj wt of IBW Protein g/k.0-1.2 Protein Calculated 80-100 Fluid: ml 3712-0858 ml (25-30 ml/kg) Nutritional Problem 1. Problem Problem Impaired nutrient utilization Etiology r/t endocrine dysfunction Signs/Symptoms: aeb labs (10/26) Glucose 198, POC Glucose (last 24 hours): 141, 102, 103, 157. Malnutrition Related to Morbid Obesity Malnutrition related to morbid obesity No Intervention/Recommendation Comments 1.Continue CCHO, 2gmNa diet as tolerated. 2.Continue antihyperglycemic medications for glucose control per MD order. 3. Nurse to encourage improved PO intake. Expected Outcomes/Goals Expected Outcomes/Goals 1.PO intake to continue to meet >75% of estimated nutritional needs. 2.Monitor PO intake improvement, wt, nutrition related lab to trend WNL, and skin integrity to trend WNL. 3.F/U as high risk in 2-3 days , 11/01-11/02.
--- NOTE | 2019-11-02 17:41 | Progress Notes ---
DATE: 11/02/2019 PSYCHOLOGY PROGRESS NOTE SUBJECTIVE: The patient is seen in his room. Case is discussed with staff. The patient presents as guarded. The patient continues to be isolative and withdrawn at times. The patient has been participating in the milieu therapy according to staff. The patient minimized his current problems or issues and did not engage in solution focus therapy during this visit. OBJECTIVE: Mood is mildly irritable and mildly dysphoric. Affect is constricted. Thought process shows to be superficial. The patient denied any hallucinations or delusions. He appears to be somewhat disinterested. The patient is compliant with his medication. ASSESSMENT: The patient seems to be improving according to staff. PLAN: We will continue supportive psychotherapy. We provided coping strategies for phase of life issues. We encouraged the patient to stay compliant with his medication and provided positive reinforcement for the patient to continue his treatment recommendations and protocol at his facility at [facility]. We provided coping strategies for phase of life issues as well. No follow up is indicated as the patient is most likely being discharged today. JOB# [id number] [facility]
--- NOTE | 2019-11-03 13:11 | Discharge Summary ---
DATE OF DISCHARGE: 11/02/2019 IDENTIFYING DATA: The patient is a 59-year-old male, resident of [facility]. JUSTIFICATION OF HOSPITALIZATION: The patient is admitted on a voluntary basis in view of his depression. CHIEF COMPLAINT: "I'm feeling down." DIAGNOSIS AT THE TIME OF ADMISSION: AXIS I: Major depressive disorder, recurrent and moderate. AXIS II: None. AXIS III: As per Dr. Albarado and is significant for diabetes mellitus, hypertension, and status post below-knee amputation on the right side. HOSPITAL COURSE AND RESPONSE TO TREATMENT: The patient has been observed on inpatient unit, provided with supportive psychotherapy. The patient has been encouraged to participate in the groups and verbalized the concerns. The patient has been placed on the Cymbalta that was given at 60 mg and Depakote was given 250 mg. With these medications, the patient was observed and was noted to be doing fairly well and hence the patient was discharged with the recommendation that he is going to be seeking treatment on an outpatient basis. PROGNOSIS AT THE TIME OF DISCHARGE: Noted to be fair with the treatment. JOB# [id number]
== END 2019-11-02 14:15 | DRG 885 ==
LOC: GERO 10-27 08:15
PROVIDERS: ADMIT Psychiatry & Neurology Psychiatry; ATTEND Psychiatry & Neurology Psychiatry
DX: F33.1 Major depressive disorder, recurrent, moderate (principal); I10 Essential (primary) hypertension; E11.9 Type 2 diabetes mellitus without complications; D64.9 Anemia, unspecified; E78.5 Hyperlipidemia, unspecified; Z79.84 Long term (current) use of oral hypoglycemic drugs; Z88.0 Allergy status to penicillin; Z89.511 Acquired absence of right leg below knee
CPT/HCPCS: 82948-90; 83036-90; 90899; G0410; Z7610